=== PATIENT | female | born 1995 | race Two or more races ===

== ENCOUNTER 2019-01-26 22:44 | Inpatient (IN) | payer MEDICAID ==
[~2019-01-26] VITALS: Ht 157.5 cm; Wt 88.8 kg
[2019-01-26 23:47] LABS: Alcohol, Urine < 3.0 mg/dL (0-5); Amphetamine Screen, Urine NEGATIVE (NEGATIVE); Barbiturate Scree,Urine NEGATIVE (NEGATIVE); Benzodiazephine Screen, Urine NEGATIVE (NEGATIVE); Cannabinoid Screen, Urine POSITIVE (NEGATIVE); Cocaine Screen, Urine NEGATIVE (NEGATIVE); Opiate Scree,Urine NEGATIVE (NEGATIVE); Phencyclidine Screen, Urine NEGATIVE (NEGATIVE)
[2019-01-26 23:52] LABS: Urine Bacteria MOD /hpf (None Seen); Urine Blood 1+ /uL (Negative); Urine Hyaline Cast FEW /lpf (0 - 2); Urine Mucus FEW (None Seen); Urine Specific Gravity 1.016 (1.001-1.035); Urine WBC 60 /hpf (0 - 5); Urine WBC Clumps PRESENT /hpf (None Seen)
[2019-01-26 23:59] LABS: Basophils # (auto) 0 uL; Basophils % (auto) 0.4 % (0.0-2.0); Eosinophils # (auto) 0 uL; Eosinophils % (auto) 0.3 % (0.0-7.0); Hematocrit 43.2 % (36.0-46.0); Hemoglobin 14.6 g/dL (12.2-16.2); Lymphocytes # (auto) 0.7 uL; Lymphocytes % (auto) 12.5 % (10.0-50.0); Mean Corpuscular Hemoglobin 32.3 pg (28.0-32.0); Mean Corpuscular Hgb Conc. 33.7 g/dL (32.0-36.0); Mean Corpuscular Volume 95.6 fL (80.0-100.0); Monocytes # (auto) 0.3 uL; Monocytes % (auto) 6.1 % (0.0-12.0); Neutrophils # (auto) 4.5 uL; Neutrophils % (auto) 80.7 % (37.0-80.0); Platelet Count (auto) 243 10^3/uL (140-450); Red Blood Cells 4.52 10^6/uL (4.0-5.20); Red Cell Distribution Width 13.2 % (11.8-14.3); White Blood Cell 5.5 10^3/uL (4.4-10.8)
[2019-01-27 00:20] LABS: BUN/Creatinine Ratio 7.7; Calcium 9.2 mg/dL (8.5-10.1); Potassium 3.5 mmol/L (3.5-5.1)
[2019-01-27 00:28] LABS: Bilirubin, Total 2.7 mg/dL (0.2-1.0); Total Protein 7.6 g/dL (6.4-8.2)
[2019-01-27] MEDS ORDERED: SODIUM CHLORIDE 0.9% 1,000 ML IV ONE (09:00)
[2019-01-27] MEDS ORDERED: HYDROmorphone HCL 2 MG/ML VL IV ONE (09:00)
[2019-01-27] MEDS ORDERED: PROMETHAZINE HCL 25 MG/ML 1ML IV ONE (09:00)
[2019-01-27] MEDS ORDERED: SODIUM CHLORIDE 0.9% 1,000 ML IVB ONE (10:35)
[2019-01-27] MEDS ORDERED: cefTRIAXone 1GM/50ML D5W 50 ML IV ONE (10:45)
[2019-01-27 11:07] LABS: Cholesterol 122 mg/dL (< 200); Triglycerides 93 mg/dL (< 150)
[2019-01-27 11:09] LABS: HDL Cholesterol 56 mg/dL (40-59); LDL Cholesterol 53 mg/dL (< 100)
[2019-01-27] MEDS ORDERED: ONDANSETRON ODT 4 MG TAB PO PRN (11:30)
[2019-01-27] MEDS: D5W/SOD CHL 0.45%/KCL 20MEQ 1,000 ML IV SCH ×3 (11:56→21:24)
[2019-01-27] MEDS ORDERED: LORazepam 2MG/ML-1ML VIAL IV PRN (12:00)
[2019-01-27] MEDS: FOLIC ACID 1 MG, MULTIPLE VITAMIN 10 ML, MAGNESIUM SULF SDV 50% 8 MEQ, THIAMINE INJ 100... INJ SCH ×5 (12:05)
[2019-01-27] MEDS: ONDANSETRON HCL 4 MG/2 ML VIAL IV PRN (12:47)
[2019-01-27] MEDS: HYDROmorphone HCL 2 MG/ML VL IV PRN (12:47)
[2019-01-27 17:00] VITALS: BP 117/65
--- NOTE | 2019-01-27 17:12 | NUR ---
Telemetry admit from ER JOSE RAULREINA admitted to Telemetry unit after SBAR received. Patient oriented to Karen cantor RN, unit, room, bed, and unit policies regarding patient care and visiting hours. Patient now on continuous telemetry monitoring, tele box # [id number] and telemetry reading on arrival to unit is SINUS FABY 48 AND ASYMPTOMATIC. Patient weighed by bedscale and encouraged to call if they need something. All questions and concerns addressed, patient verbalized understanding.
--- NOTE | 2019-01-27 19:00 | NUR ---
OPENING NOTE- NOC SHIFT PATIENT IS ALERT AND ORIENTED X4. PATIENT IS RESTING IN BED IN HER OWN CLOTHES, PATIENT STATES SHE IS MUCH MORE COMFORTABLE IN HER CLOTHES. BED IS LOCKED IN LOWEST POSITION WITH BED RAILS UP X2 FOR SAFETY PRECAUTIONS. BEDSIDE TABLE IS WITHIN REACH, CALL LIGHT IS WITHIN REACH. DISCUSSED POC WITH PATIENT AND INSTRUCTED PATIENT TO CALL PRN; PATIENT VERBALIZED UNDERSTANDING. PATIENT IS AWARE THAT SHE IS NPO. NO DRINKS OR FOOD PRESENT AT BEDSIDE. PATIENT DENIES PAIN AT THIS TIME. WILL CONTINUE TO MONITOR Q1H AND PRN.
[2019-01-27 20:00] VITALS: BP 107/55
[2019-01-27] MEDS: FAMOTIDINE (10MG/ML) 2ML VL IV SCH (21:24)
[2019-01-27 22:00] VITALS: BP 107/55
--- NOTE | 2019-01-28 00:24 | NUR ---
ROUNDS PATIENT IS COMFORTABLE IN BED. NO S/SX OF DISTRESS, SOB OR PAIN.
--- NOTE | 2019-01-28 04:44 | NUR ---
PATIENT UP TO BATHROOM. STEADY GAIT NOTED. STAND BY ASSISTANCE.
[2019-01-28 05:00] VITALS: BP 101/52
[2019-01-28 06:03] LABS: Basophils # (auto) 0 uL; Basophils % (auto) 0.4 % (0.0-2.0); Eosinophils # (auto) 0 uL; Eosinophils % (auto) 0.2 % (0.0-7.0); Hematocrit 39.5 % (36.0-46.0); Hemoglobin 13.5 g/dL (12.2-16.2); Lymphocytes # (auto) 1.2 uL; Lymphocytes % (auto) 18.3 % (10.0-50.0); Mean Corpuscular Hemoglobin 32.6 pg (28.0-32.0); Mean Corpuscular Volume 95.8 fL (80.0-100.0); Monocytes # (auto) 0.5 uL; Monocytes % (auto) 7.4 % (0.0-12.0); Neutrophils # (auto) 4.9 uL; Neutrophils % (auto) 73.7 % (37.0-80.0); Platelet Count (auto) 173 10^3/uL (140-450); Red Blood Cells 4.13 10^6/uL (4.0-5.20); Red Cell Distribution Width 13.1 % (11.8-14.3); White Blood Cell 6.6 10^3/uL (4.4-10.8)
[2019-01-28 06:09] LABS: Potassium 3.8 mmol/L (3.5-5.1)
[2019-01-28 06:21] LABS: Albumin 2.8 g/dL (3.4-5.0); BUN/Creatinine Ratio 9.9; Bilirubin, Total 0.9 mg/dL (0.2-1.0); Calcium 8.2 mg/dL (8.5-10.1); Total Protein 5.9 g/dL (6.4-8.2)
--- NOTE | 2019-01-28 06:48 | NUR ---
CLOSING NOTE- NOC SHIFT PATIENT IS RESTING IN BED, NO S/SX OF DISTRESS, SOB OR PAIN. PATIENT IS AWARE THAT SHE IS NPO. NO DRINKS OR FOOD AT BEDSIDE.
--- NOTE | 2019-01-28 07:43 | NUR ---
Opening Shift Note Assumed care of patient, awake and alert. No S/S of distress/SOB or pain. Instructed on POC and to call for assist PRN, will continue to monitor for changes Q1hr and PRN.
[2019-01-28 09:00] VITALS: BP 118/65
[2019-01-28] MEDS: cefTRIAXone 1GM/50ML D5W 50 ML IV SCH (09:08)
[2019-01-28] MEDS: HYDROmorphone HCL 2 MG/ML VL IV PRN ×2 (09:09→20:19)
[2019-01-28] MEDS: FAMOTIDINE (10MG/ML) 2ML VL IV SCH ×2 (09:09→21:57)
--- NOTE | 2019-01-28 10:25 | NUR ---
MD Chirinos at bedside rounded on patient updated on plan of care possible surgery tomorrow
[2019-01-28] MEDS ORDERED: metroNIDAZOLE 500MG/100ML 100 ML IV ONE (11:00)
--- NOTE | 2019-01-28 12:45 | NUR ---
x2 Peripheral IV inserted 22g RAC and 22g RFA, right hand IV removed and LFA IV removed tolerated well
[2019-01-28 13:00] VITALS: BP 105/61
--- NOTE | 2019-01-28 14:00 | NUR ---
patient boyfreind at bedside visiting patient
[2019-01-28] MEDS: metroNIDAZOLE 500MG/100ML 100 ML IV SCH ×2 (14:24→21:57)
[2019-01-28] MEDS: D5W/SOD CHL 0.45%/KCL 20MEQ 1,000 ML IV SCH ×2 (14:26→20:24)
[2019-01-28] MEDS: FOLIC ACID 1 MG, MULTIPLE VITAMIN 10 ML, MAGNESIUM SULF SDV 50% 8 MEQ, THIAMINE INJ 100... INJ SCH ×5 (14:26)
--- NOTE | 2019-01-28 15:33 | NUR ---
consents signed for laparoscopic possibly open cholecystectomy schedule for tomorrow, estimated surgery schedule at noon
[2019-01-28 17:00] VITALS: BP 119/70
--- NOTE | 2019-01-28 19:00 | NUR ---
OPENING NOTE- NOC SHIFT PATIENT IS ALERT AND ORIENTED X4, ANSWERS IN COMPLETE SENTENCES AND MAKES APPROPRIATE EYE CONTACT. PATIENT IS IN BED RESTING, TALKING ON HER PERSONAL PHONE. BED IS LOCKED IN LOWEST POSITION, BED RAILS UP X2. BEDSIDE TABLE WITHIN REACH, CALL LIGHT WITHIN REACH, PERSONAL BELONGINGS WITHIN REACH. DISCUSSED POC WITH PATIENT AND INSTRUCTED PATIENT TO CALL PRN; PATIENT VERBALIZED UNDERSTANDING. PATIENT IS AWARE THAT SHE IS NPO EXCEPT FOR ICE CHIPS UNTIL MIDNIGHT, AND AFTER MIDNIGHT SHE WILL BE NPO. WILL CONTINUE TO MONITOR Q1H AND PRN.
[2019-01-28] MEDS: ONDANSETRON HCL 4 MG/2 ML VIAL IV PRN (20:18)
[2019-01-28 22:00] VITALS: BP 111/52
[2019-01-29] MEDS: D5W/SOD CHL 0.45%/KCL 20MEQ 1,000 ML IV SCH (04:56)
[2019-01-29 05:10] LABS: Basophils # (auto) 0.1 uL; Basophils % (auto) 1.1 % (0.0-2.0); Eosinophils # (auto) 0 uL; Eosinophils % (auto) 0.9 % (0.0-7.0); Hematocrit 35.9 % (36.0-46.0); Hemoglobin 12.1 g/dL (12.2-16.2); Lymphocytes # (auto) 1.4 uL; Lymphocytes % (auto) 27.9 % (10.0-50.0); Mean Corpuscular Hemoglobin 32.5 pg (28.0-32.0); Mean Corpuscular Hgb Conc. 33.7 g/dL (32.0-36.0); Mean Corpuscular Volume 96.6 fL (80.0-100.0); Monocytes # (auto) 0.5 uL; Monocytes % (auto) 9.2 % (0.0-12.0); Neutrophils % (auto) 60.9 % (37.0-80.0); Platelet Count (auto) 152 10^3/uL (140-450); Red Blood Cells 3.72 10^6/uL (4.0-5.20); Red Cell Distribution Width 13.4 % (11.8-14.3)
[2019-01-29 05:27] LABS: INR 0.95 (0.9-1.15); Partial Thromboplastin Time 31.4 sec (23.64-32.05)
[2019-01-29 05:40] VITALS: BP 123/78
[2019-01-29 05:44] LABS: Albumin 2.7 g/dL (3.4-5.0); BUN/Creatinine Ratio 5.6; Calcium 8.2 mg/dL (8.5-10.1); Potassium 3.7 mmol/L (3.5-5.1)
[2019-01-29 05:47] LABS: Bilirubin, Total 0.7 mg/dL (0.2-1.0); Total Protein 5.8 g/dL (6.4-8.2)
[2019-01-29] MEDS: metroNIDAZOLE 500MG/100ML 100 ML IV SCH ×3 (06:13→21:07)
[2019-01-29] MEDS: HYDROmorphone HCL 2 MG/ML VL IV PRN ×7 (06:56→21:08)
[2019-01-29] MEDS: ONDANSETRON HCL 4 MG/2 ML VIAL IV PRN ×4 (06:56→21:57)
--- NOTE | 2019-01-29 07:25 | NUR ---
Open Shift Note Received report on patient, awake and sitting up in bed. Patient shows no signs of distress at this time but states she still has pain in upper quadrant 4/10. Patient states it is feeling better than before. Discussed POC with patient and plans for surgery today, patient verbalized understanding. Bed in lowest locked position, side rails up x2 and call light within reach. Will continue to monitor.
--- NOTE | 2019-01-29 07:38 | NUR ---
CLOSING NOTE- NOC SHIFT PATIENT CARE ENDORSED TO DAY SHIFT NURSE. PATIENT IS IN BED. NO S/SX OF DISTRESS OR SOB.
[2019-01-29 08:00] VITALS: BP 113/38
[2019-01-29] MEDS: cefTRIAXone 1GM/50ML D5W 50 ML IV SCH (09:56)
[2019-01-29] MEDS: FAMOTIDINE (10MG/ML) 2ML VL IV SCH ×2 (10:20→21:07)
[2019-01-29 12:00] VITALS: BP 128/44
[2019-01-29] MEDS ORDERED: POVIDONE IODINE 10 % TOPICAL OINT 30GM TOP ONE (12:10)
[2019-01-29] MEDS ORDERED: ceFAZolin 1GM/50ML 50 ML IV ONE (12:13)
[2019-01-29] MEDS ORDERED: ROCURONIUM 10MG/ML 10ML VIAL IV ONE (12:35)
[2019-01-29] MEDS ORDERED: KETOROLAC TROMETH 30 MG/ML 1ML VIAL IV ONE (12:35)
[2019-01-29] MEDS ORDERED: NEOSTIGMINE 1 MG/ML INJ (10mg/10ML VIAL) IV ONE (12:35)
[2019-01-29] MEDS ORDERED: GLYCOPYRROLATE 0.2 MG/ML 1ML VIAL IV ONE (12:35)
--- NOTE | 2019-01-29 12:57 | NUR ---
Nutrition Assessment Notes please see attached link for complete assessment Est. Needs ABW (67 kg): 8329-8618 kcal (20-23 kcal/kgBW), 67-73 gms pro (1.0-1.1 gms/kgBW). Will continue to monitor pertinent labs and reassess nutrient need prn Addendum: 01/29/19 at [address] Amended: Links added.
[2019-01-29] MEDS ORDERED: ONDANSETRON HCL 4 MG/2 ML VIAL ONE (14:03)
[2019-01-29] MEDS ORDERED: HYDROmorphone HCL 2 MG/ML VL ONE (14:03)
[2019-01-29 16:00] VITALS: BP 134/59
--- NOTE | 2019-01-29 19:05 | NUR ---
OPENING NOTE- NOC SHIFT PATIENT IS ALERT AND ORIENTED X4, ANSWERS IN COMPLETE SENTENCES AND MAKES APPROPRIATE EYE CONTACT. PATIENT IS IN BED, BED IS LOCKED IN LOWEST POSITION, BED RAILS UP X2, BEDSIDE TABLE WITHIN REACH, CALL LIGHT WITHIN REACH. PATIENT IS POST CHOLECYSTECTOMY. GAUZES WITH TEGADERM COVER HER INCISIONS, TWO TO HER LEFT ABDOMEN AND ONE TO HER LOWER RIGHT ABDOMEN. NO DISCHARGE AT GAUZES NOTED BUT ARE STAINED WITH WHAT APPEARS TO BE IODINE. PATIENT IS WEARING ABDOMINAL BINDER AND TOLERATING WELL. PATIENT REPORTS OVERALL GENERALIZED BODY ACHES. ENCOURAGED PATIENT TO WALK AND TAKE DEEP BREATHES. BOWEL SOUNDS PRESENT X4, PATIENT REPORTS TO HAVE PASSED GAS. WILL CONTINUE TO MONITOR Q1H AND PROVIDE PAIN MANAGEMENT PER MD ORDERS. DISCUSSED POC WITH PATIENT AND INSTRUCTED PATIENT TO CALL PRN; PATIENT VERBALIZED UNDERSTANDING.
--- NOTE | 2019-01-29 19:13 | NUR ---
End of Shift Endorsed care to NOC nurse. No signs of distress at this time.
[2019-01-29 20:05] VITALS: BP 103/70
[2019-01-29] MEDS ORDERED: FOLIC ACID 1 MG, MULTIPLE VITAMIN 10 ML, MAGNESIUM SULF SDV 50% 8 MEQ, THIAMINE INJ 100... INJ ONE ×5 (21:50)
[2019-01-29 22:00] VITALS: BP 103/70
--- NOTE | 2019-01-29 22:24 | NUR ---
ITCHINESS PATIENT COMPLAINED OF ITCHINESS TO HER UPPER EXTREMITIES. PATIENT HAS NOT RECEIVED NEW MEDICATIONS DURING MY SHIFT. VS WITHIN NORMAL LIMITS. RUBBED LOTION ON UPPER ARMS AND FOREARMS; PATIENT REPORTS RELIEF.
--- NOTE | 2019-01-29 22:26 | NUR ---
PROVIDED PATIENT WITH JELLO, APPLE JUICE AND ICE CHIPS; PATIENT TOLERATING WELL. ASSESSING FOR ADVANCEMENT OF DIET IN THE AM.
--- NOTE | 2019-01-30 00:59 | NUR ---
ITCHINESS PATIENT COMPLAINS OF ITCHINESS AGAIN. NO RASHES, NO REDNESS, NO NEW MEDICATIONS HAVE BEEN ADMINISTERED DURING MY SHIFT. PATIENT STATES THAT IT COULD BE THE LINENS THAT NEED TO BE CHANGED; WILL PROVIDE A COMPLETE LINEN CHANGE.
[2019-01-30 05:00] VITALS: BP 114/59
[2019-01-30 06:05] LABS: Basophils # (auto) 0 uL; Basophils % (auto) 0.3 % (0.0-2.0); Eosinophils # (auto) 0 uL; Hematocrit 37.3 % (36.0-46.0); Lymphocytes # (auto) 0.5 uL; Lymphocytes % (auto) 7.3 % (10.0-50.0); Mean Corpuscular Hgb Conc. 34.8 g/dL (32.0-36.0); Mean Corpuscular Volume 94.7 fL (80.0-100.0); Monocytes # (auto) 0.4 uL; Monocytes % (auto) 5.1 % (0.0-12.0); Neutrophils # (auto) 6.5 uL; Neutrophils % (auto) 87.3 % (37.0-80.0); Platelet Count (auto) 172 10^3/uL (140-450); Red Blood Cells 3.93 10^6/uL (4.0-5.20); White Blood Cell 7.4 10^3/uL (4.4-10.8)
[2019-01-30] MEDS: metroNIDAZOLE 500MG/100ML 100 ML IV SCH ×3 (06:06→21:42)
[2019-01-30 06:25] LABS: Albumin 2.8 g/dL (3.4-5.0); Calcium 8.8 mg/dL (8.5-10.1); Potassium 4.1 mmol/L (3.5-5.1)
[2019-01-30 06:28] LABS: BUN/Creatinine Ratio 5.4; Bilirubin, Total 0.5 mg/dL (0.2-1.0); Total Protein 6.5 g/dL (6.4-8.2)
[2019-01-30] MEDS: D5W/SOD CHL 0.45%/KCL 20MEQ 1,000 ML IV SCH ×3 (07:39→14:30)
[2019-01-30] MEDS: HYDROmorphone HCL 2 MG/ML VL IV PRN (07:58)
--- NOTE | 2019-01-30 08:00 | NUR ---
RECEIVED PT RESTING IN BED, CALL LIGHT WITHIN REACH, PT REPORTS PAIN ON ABDOMEN AT 8/10, ABDOMINAL BINDER ON, INCENTIVE SPIROMETER AT BED SIDE, PT EDUCATED ON THE USE AND THE IMPORTANCE OF IT. WILL CONTINUE TO MONITOR PT.
[2019-01-30 09:00] VITALS: BP 131/75
--- NOTE | 2019-01-30 09:00 | NUR ---
DR. AYON AT BED SIDE TO SEE PT, DOCTOR DISCUSSED THE PLAN OF CARE WITH PT.
[2019-01-30] MEDS: cefTRIAXone 1GM/50ML D5W 50 ML IV SCH (09:17)
[2019-01-30] MEDS: FAMOTIDINE (10MG/ML) 2ML VL IV SCH ×2 (09:18→21:41)
[2019-01-30] MEDS: FOLIC ACID 1 MG, MULTIPLE VITAMIN 10 ML, MAGNESIUM SULF SDV 50% 8 MEQ, THIAMINE INJ 100... INJ SCH ×5 (12:26)
[2019-01-30 13:00] VITALS: BP 114/54
[2019-01-30] MEDS: MORPHINE SULF INJ 2 MG/ML SYRINGE 1ML IV PRN ×2 (14:44→20:17)
[2019-01-30 17:00] VITALS: BP 119/66
--- NOTE | 2019-01-30 19:28 | NUR ---
Opening Shift Note Received report from vince Sosa RN. Assumed care of patient, awake and alert. No S/S of distress/SOB or pain. Instructed on POC and to call for assist PRN, will continue to monitor for changes Q1hr and PRN.
[2019-01-30 22:00] VITALS: BP 114/55
[2019-01-31] MEDS: D5W/SOD CHL 0.45%/KCL 20MEQ 1,000 ML IV SCH ×2 (00:58→09:41)
--- NOTE | 2019-01-31 01:00 | NUR ---
IV insertion IV access obtained, via clean sterile technique by inserting 22 gauge catheter at right forearm after first attempt. IV secured properly. No trauma to site. Patient tolerated procedure well.
--- NOTE | 2019-01-31 01:00 | NUR ---
ROUNDS Patient is complaining of pain to left forearm. IV still infusing well. No s/s of infiltration noted. Patient is alert and oriented, no distress noted at this time.
[2019-01-31 04:37] LABS: Basophils # (auto) 0 uL; Basophils % (auto) 0.5 % (0.0-2.0); Eosinophils # (auto) 0.1 uL; Eosinophils % (auto) 1.3 % (0.0-7.0); Hematocrit 39.8 % (36.0-46.0); Lymphocytes # (auto) 2.1 uL; Lymphocytes % (auto) 31.8 % (10.0-50.0); Mean Corpuscular Hemoglobin 33.1 pg (28.0-32.0); Mean Corpuscular Hgb Conc. 32.8 g/dL (32.0-36.0); Monocytes # (auto) 0.5 uL; Monocytes % (auto) 7.6 % (0.0-12.0); Neutrophils # (auto) 3.9 uL; Neutrophils % (auto) 58.8 % (37.0-80.0); Nucleated Red Blood Cells % 0.1 %; Platelet Count (auto) 197 10^3/uL (140-450); Red Blood Cells 3.95 10^6/uL (4.0-5.20); Red Cell Distribution Width 13.6 % (11.8-14.3); White Blood Cell 6.6 10^3/uL (4.4-10.8)
[2019-01-31 05:00] VITALS: BP 118/55
[2019-01-31 05:09] LABS: Calcium 7.2 mg/dL (8.5-10.1)
[2019-01-31 05:13] LABS: BUN/Creatinine Ratio 9.8
[2019-01-31] MEDS: metroNIDAZOLE 500MG/100ML 100 ML IV SCH (05:57)
[2019-01-31 09:00] VITALS: BP 144/74
[2019-01-31] MEDS: cefTRIAXone 1GM/50ML D5W 50 ML IV SCH (09:40)
[2019-01-31] MEDS: FAMOTIDINE (10MG/ML) 2ML VL IV SCH (09:42)
--- NOTE | 2019-01-31 09:45 | NUR ---
Dr. Kirk at bed side to see pt, doctor discussed the plan of care with pt,
--- NOTE | 2019-01-31 09:50 | NUR ---
Called/paged Dr. Pulido / surgeon called regarding Dr. Kirk inquiring on when can pt be d/c, left a message. Waiting for call back. Continue care.
--- NOTE | 2019-01-31 12:20 | NUR ---
Nutrition consult/Follow-up Notes Pt. visited at bedside. Endorses no GI distress with soft diet with good tolerance and improved appetite since admission. PO 75% x 2 days. Diet education on bland, soft, and low fat diet provided during visit. Pt. verbalizes understanding and appreciation. Est. Needs: Based on ABW 67 kg 1541 kcal (20-23/kg), 67 g protein (1.0-1.2 g/kg) Labs: (01/31) Na 147H, K 4, Ca 7.2 Skin: Uriel 22 low risk GI: Last BM x 1 (01/31) PES: Altered nutrition related lab values r/t current chronic medical condition AEB hyperglycemia, mod hypoalb, and hypocalcaemia. (ongoing) Decreased nutrient needs r/t adiposity AEB pt.s high BMI 33.9. (ongoing) Plan of care: Continue current diet and advance as tolerated. Monitor pertinent labs, GI function, PO intake/diet tolerance. F/u in 3-5 days. Recommendations: 1) Advance diet to regular diet as tolerated
[2019-01-31 12:49] VITALS: BP 128/89
[2019-01-31 13:00] VITALS: BP 128/89
--- NOTE | 2019-01-31 14:20 | NUR ---
Discharge instructions given as ordered. Encourage to follow up with PMD as instructed. All questions and concerns addressed. Patient verbalized understanding. Medication reconciliation form completed and copy given to patient. No home medications held in Pharmacy returned to patient, and no needed vaccines given. IV removed with catheter intact, incision dressing change and applied. Telemetry unit returned to [facility].
--- NOTE | 2019-01-31 14:30 | NUR ---
Patient taken to vehicle via wheelchair with all personal belongings, accompanied by staff and family member. No distress noted at time of departure.
== END 2019-01-31 14:30 | disposition home or self-care (01) | DRG 263 ==
LOC: ER 22:44 → TELE 22:45 → CENTRAL 01-27 17:00 → TELE-CENTR 01-28 08:29
PROVIDERS: ADMIT Nurse Practitioner Acute Care; ATTEND Internal Medicine Pulmonary Disease
PROC: 0FT44ZZ Resection of Gallbladder, Percutaneous Endoscopic Approach (ICD-10-PCS; principal; 2019-01-29 12:45)
DX: K85.10 Biliary acute pancreatitis without necrosis or infection (principal); N17.0 Acute kidney failure with tubular necrosis; E44.0 Moderate protein-calorie malnutrition; K80.00 Calculus of gallbladder with acute cholecystitis without obstruction; N39.0 Urinary tract infection, site not specified; R00.1 Bradycardia, unspecified; N18.9 Chronic kidney disease, unspecified; F17.210 Nicotine dependence, cigarettes, uncomplicated; F12.10 Cannabis abuse, uncomplicated; R73.9 Hyperglycemia, unspecified; E87.0 Hyperosmolality and hypernatremia; E66.01 Morbid (severe) obesity due to excess calories; Z68.35 Body mass index [BMI] 35.0-35.9, adult
CPT/HCPCS: 36415; 71045; 74176; 74181; 76705; 80048; 80053; 80061; 80307; 81001; 81025; 82150; 83690; 84443; 84702; 85025; 85610; 85730; 86850; 86900; 86901; 87086; 96361; 96365; 96367; 96375; G0378; J0690; J0696; J1885; J2405; J3490

== ENCOUNTER 2023-02-16 12:16 | Emergency (ER) | payer MEDICAID ==
[~2023-02-16] VITALS: Ht 160 cm; Wt 100.6 kg
[2023-02-16] MEDS ORDERED: PANTOPRAZOLE 40 MG/10 ML VIAL INJ IV ONE (12:45)
[2023-02-16] MEDS ORDERED: SODIUM CHLORIDE 0.9% 1,000 ML IVB ONE (12:45)
[2023-02-16] MEDS ORDERED: PROCHLORPERAZINE EDISYLATE 5 MG/ML 2ML VIAL IV ONE (12:45)
[2023-02-16 13:01] LABS: Basophils # (auto) 0 10 ^3/uL (0-0.2); Basophils % (auto) 0.6 % (0.0-2.0); Eosinophils # (auto) 0 10 ^3/uL (0-0.8); Eosinophils % (auto) 0.5 % (0.0-7.0); Hematocrit 48.9 % (36.0-46.0); Hemoglobin 16.7 g/dL (12.2-16.2); Lymphocytes # (auto) 1.5 10 ^3/uL (0.4-5.4); Mean Corpuscular Hemoglobin 31.7 pg (28.0-32.0); Mean Corpuscular Hgb Conc. 34.1 g/dL (32.0-36.0); Mean Corpuscular Volume 93.1 fL (80.0-100.0); Monocytes # (auto) 0.4 10 ^3/uL (0-1.3); Monocytes % (auto) 6.8 % (0.0-12.0); Neutrophils % (auto) 67.1 % (37.0-80.0); Nucleated Red Blood Cells % 0.1 %; Red Blood Cells 5.25 10^6/uL (4.0-5.20); Red Cell Distribution Width 13.2 % (11.8-14.3); White Blood Cell 5.9 10^3/uL (4.4-10.8)
[2023-02-16 13:25] VITALS: BP 131/51; PULSE 78; RESP 20; TEMP 97.7; O2SAT 95
[2023-02-16 13:25] LABS: Alanine Aminotransferase 38 U/L (7-40); Albumin 4.9 g/dL (3.2-4.8); Alkaline Phosphatase 78 U/L (46-116); Anion Gap 10.8 (5-15); Aspartate Aminotransferase 28 U/L (13-40); BUN/Creatinine Ratio 6.7 (10.0-20.0); Bilirubin, Total 1.6 mg/dL (0.2-1.0); Blood Urea Nitrogen 7 mg/dL (9-23); Calcium 9.9 mg/dL (8.5-10.1); Carbon Dioxide 20.2 mmol/L (20-30); Chloride 107 mmol/L (98-107); Glucose 133 mg/dL (74-106); Lipase 48 U/L (12-53); Potassium 3.5 mmol/L (3.5-5.1); Sodium 138 mmol/L (136-145); Total Protein 8.2 g/dL (5.7-8.2)
[2023-02-16] MEDS ORDERED: PANT40TA2 PO (13:53)
[2023-02-16] MEDS ORDERED: ZOFR4T PO (13:53)
== END 2023-02-16 14:36 | disposition home or self-care (01) ==
LOC: ER 12:16
DX: F12.188 Cannabis abuse with other cannabis-induced disorder (principal); R51.9 Headache, unspecified; Z90.49 Acquired absence of other specified parts of digestive tract
CPT/HCPCS: 36415; 74176; 80053; 83690; 85025; 96361; 96374; 96375; 99285; C9113; J0780; J7030

== ENCOUNTER 2023-03-31 15:55 | Emergency (ER) | payer MEDICAID ==
[~2023-03-31] VITALS: Ht 162.6 cm; Wt 103.4 kg
[~2023-03-31 15:55] MED LIST: PANT40TA2 PO; ZOFR4T PO
[2023-03-31] MEDS ORDERED: ONDANSETRON ODT 4 MG TAB PO ONE (17:30)
[2023-03-31] MEDS ORDERED: LORazepam 0.5 MG TAB PO ONE (17:30)
[2023-03-31 17:36] LABS: Urine Bacteria NONE SEEN /hpf (None Seen); Urine Blood Negative /uL (Negative); Urine Clarity HAZY (Clear); Urine Color Yellow (Yellow); Urine Mucus FEW (None Seen); Urine Protein, UAD 1+ (Negative); Urine Specific Gravity 1.027 (1.001-1.035); Urine WBC 5 /hpf (0 - 5)
[2023-03-31 18:11] LABS: Basophils # (auto) 0.1 10 ^3/uL (0-0.2); Basophils % (auto) 0.9 % (0.0-2.0); Eosinophils # (auto) 0 10 ^3/uL (0-0.8); Eosinophils % (auto) 0.2 % (0.0-7.0); Hematocrit 45.4 % (36.0-46.0); Hemoglobin 15.6 g/dL (12.2-16.2); Lymphocytes # (auto) 2.2 10 ^3/uL (0.4-5.4); Mean Corpuscular Hemoglobin 32.1 pg (28.0-32.0); Mean Corpuscular Hgb Conc. 34.3 g/dL (32.0-36.0); Mean Corpuscular Volume 93.5 fL (80.0-100.0); Monocytes # (auto) 0.5 10 ^3/uL (0-1.3); Monocytes % (auto) 6.5 % (0.0-12.0); Neutrophils # (auto) 4.4 10 ^3/uL (1.6-8.6); Neutrophils % (auto) 61.4 % (37.0-80.0); Nucleated Red Blood Cells % 0.1 %; Red Blood Cells 4.86 10^6/uL (4.0-5.20); Red Cell Distribution Width 13.1 % (11.8-14.3); White Blood Cell 7.2 10^3/uL (4.4-10.8)
[2023-03-31 18:30] LABS: Alanine Aminotransferase 22 U/L (7-40); Albumin 4.8 g/dL (3.2-4.8); Alkaline Phosphatase 88 U/L (46-116); Anion Gap 11 (5-15); Aspartate Aminotransferase 22 U/L (13-40); BUN/Creatinine Ratio 10.2 (10.0-20.0); Blood Urea Nitrogen 10 mg/dL (9-23); Calcium 9.6 mg/dL (8.7-10.4); Carbon Dioxide 21 mmol/L (20-30); Chloride 108 mmol/L (98-107); Glucose 135 mg/dL (74-106); Lipase 40 U/L (12-53); Potassium 3.6 mmol/L (3.5-5.1); Sodium 140 mmol/L (136-145)
[2023-03-31 18:31] LABS: Bilirubin, Total 1.7 mg/dL (0.2-1.0); Total Protein 7.4 g/dL (5.7-8.2)
[2023-03-31 21:57] VITALS: BP 144/92; TEMP 97.7
[2023-03-31 21:58] VITALS: PULSE 60; RESP 20; O2SAT 99
== END 2023-03-31 22:00 | disposition home or self-care (01) ==
LOC: ER 15:55
DX: F41.9 Anxiety disorder, unspecified (principal); R10.2 Pelvic and perineal pain; F15.90 Other stimulant use, unspecified, uncomplicated; F12.90 Cannabis use, unspecified, uncomplicated; Z90.49 Acquired absence of other specified parts of digestive tract; Z98.890 Other specified postprocedural states
CPT/HCPCS: 36415; 80053; 81001; 83690; 84702; 85025; 99283; Q0162

== ENCOUNTER 2023-06-30 11:19 | Emergency (ER) | payer MEDICAID ==
[~2023-06-30] VITALS: Ht 162.6 cm; Wt 107.7 kg
[2023-06-30] MEDS ORDERED: diphenhdrAMINE HCL 25 MG CAP PO ONE (13:45)
[2023-06-30] MEDS ORDERED: ACETAMINOPHEN 500 MG TAB PO ONE (13:45)
[2023-06-30 13:50] VITALS: BP 132/80; PULSE 99; RESP 18; O2SAT 99
[2023-06-30 14:19] VITALS: TEMP 99
[2023-06-30] MEDS ORDERED: AZIT500T66 PO (14:38)
[2023-06-30] MEDS ORDERED: PROM1SOL4 PO (14:38)
== END 2023-06-30 14:48 | disposition home or self-care (01) ==
LOC: ER 11:19
DX: J03.90 Acute tonsillitis, unspecified (principal); F41.8 Other specified anxiety disorders; R07.89 Other chest pain; Z90.49 Acquired absence of other specified parts of digestive tract; Z79.2 Long term (current) use of antibiotics; Z79.899 Other long term (current) drug therapy
CPT/HCPCS: 71045

== ENCOUNTER 2023-08-02 12:35 | Emergency (ER) | payer MEDICAID ==
[~2023-08-02] VITALS: Ht 160 cm; Wt 110.4 kg
[~2023-08-02 12:35] MED LIST changes: +AZIT500T66 PO; +PROM1SOL4 PO
[2023-08-02 13:24] VITALS: BP 116/66; PULSE 76; RESP 17; TEMP 98.2; O2SAT 99
[2023-08-02] MEDS: KETOROLAC TROMETH 60MG/2ML VIAL IM ONE (13:49)
[2023-08-02] MEDS ORDERED: IBUP1TAB5 PO (14:40)
[2023-08-02] MEDS ORDERED: CYCL-839 PO (14:40)
== END 2023-08-02 14:45 | disposition home or self-care (01) ==
LOC: ER 12:35
DX: M54.6 Pain in thoracic spine (principal); F41.9 Anxiety disorder, unspecified; F32.9 Major depressive disorder, single episode, unspecified; F15.90 Other stimulant use, unspecified, uncomplicated; Z98.890 Other specified postprocedural states; Z79.899 Other long term (current) drug therapy
CPT/HCPCS: 71250; 74176; 96372; 99285; J1885

== ENCOUNTER 2023-08-26 17:51 | Emergency (ER) | payer MEDICAID ==
[~2023-08-26] VITALS: Ht 172.7 cm; Wt 91.0 kg
[~2023-08-26 17:51] MED LIST changes: +CYCL-839 PO; +IBUP1TAB5 PO
[2023-08-26 18:30] VITALS: PULSE 60; RESP 16; O2SAT 98
[2023-08-26] MEDS: SODIUM CHLORIDE 0.9% 1,000 ML IVB ONE (18:33)
[2023-08-26 18:47] LABS: Basophils # (auto) 0 10 ^3/uL (0-0.2); Basophils % (auto) 0.9 % (0.0-2.0); Eosinophils # (auto) 0.1 10 ^3/uL (0-0.8); Eosinophils % (auto) 2.6 % (0.0-7.0); Hemoglobin 14.7 g/dL (12.2-16.2); Lymphocytes # (auto) 2.1 10 ^3/uL (0.4-5.4); Lymphocytes % (auto) 40.6 % (10.0-50.0); Mean Corpuscular Hemoglobin 31.4 pg (28.0-32.0); Mean Corpuscular Hgb Conc. 33.4 g/dL (32.0-36.0); Mean Corpuscular Volume 93.8 fL (80.0-100.0); Monocytes # (auto) 0.5 10 ^3/uL (0-1.3); Monocytes % (auto) 8.6 % (0.0-12.0); Neutrophils # (auto) 2.5 10 ^3/uL (1.6-8.6); Neutrophils % (auto) 47.3 % (37.0-80.0); Red Blood Cells 4.69 10^6/uL (4.0-5.20); Red Cell Distribution Width 13.2 % (11.8-14.3); White Blood Cell 5.3 10^3/uL (4.4-10.8)
[2023-08-26 19:00] LABS: INR 0.96 (0.9-1.15); Partial Thromboplastin Time 29.3 SEC (24.5-34.5); Prothrombin Time 10.1 sec (9.3-11.8)
[2023-08-26 19:01] LABS: Alanine Aminotransferase 27 U/L (7-40); Albumin 4.2 g/dL (3.2-4.8); Alkaline Phosphatase 73 U/L (46-116); Anion Gap 7 (5-15); Aspartate Aminotransferase 19 U/L (13-40); BUN/Creatinine Ratio 12.4 (10.0-20.0); Bilirubin, Total 0.7 mg/dL (0.2-1.0); Blood Urea Nitrogen 12 mg/dL (9-23); Calcium 9.4 mg/dL (8.7-10.4); Carbon Dioxide 24 mmol/L (20-30); Chloride 110 mmol/L (98-107); Glucose 110 mg/dL (74-106); Lipase 35 U/L (12-53); Potassium 3.8 mmol/L (3.5-5.1); Sodium 141 mmol/L (136-145); Total Protein 5.6 g/dL (5.7-8.2)
[2023-08-26 19:30] VITALS: PULSE 67; RESP 16; TEMP 98; O2SAT 99
[2023-08-26] MEDS: KETOROLAC TROMETH 30 MG/ML 1ML VIAL IV ONE (20:03)
[2023-08-26 22:00] VITALS: BP 126/69; PULSE 61; RESP 12; O2SAT 96
[2023-08-26] MEDS ORDERED: CYCL-839 PO (22:04)
[2023-08-26] MEDS ORDERED: ACET500T58 PO (22:04)
== END 2023-08-26 22:40 | disposition home or self-care (01) ==
LOC: ER 17:51 → EDBD 17:51 → ER 22:33
DX: R07.89 Other chest pain (principal); R10.2 Pelvic and perineal pain; R51.9 Headache, unspecified; R10.12 Left upper quadrant pain; Z90.49 Acquired absence of other specified parts of digestive tract; Z79.899 Other long term (current) drug therapy; Z79.1 Long term (current) use of non-steroidal anti-inflammatories (NSAID)
CPT/HCPCS: 36415; 71045; 76700; 80053; 83690; 84702; 85025; 85610; 85730; 96361; 96374; 99285; J1885; J7030

== ENCOUNTER 2023-12-14 20:07 | Emergency (ER) | payer MEDICAID ==
[~2023-12-14] VITALS: Ht 160 cm; Wt 112.4 kg
[~2023-12-14 20:07] MED LIST changes: +ACET500T58 PO; +IBUP-1456 PO
[2023-12-14 20:58] LABS: Urine Bacteria None Seen /hpf (None Seen)
[2023-12-14 21:03] LABS: Basophils # (auto) 0.1 10 ^3/uL (0-0.2); Basophils % (auto) 0.9 % (0.0-2.0); Eosinophils # (auto) 0.2 10 ^3/uL (0-0.8); Hematocrit 44.6 % (36.0-46.0); Hemoglobin 15.4 g/dL (12.2-16.2); Lymphocytes % (auto) 29.6 % (10.0-50.0); Mean Corpuscular Hemoglobin 31.5 pg (28.0-32.0); Mean Corpuscular Hgb Conc. 34.5 g/dL (32.0-36.0); Mean Corpuscular Volume 91.4 fL (80.0-100.0); Monocytes # (auto) 0.6 10 ^3/uL (0-1.3); Monocytes % (auto) 8.9 % (0.0-12.0); Neutrophils # (auto) 3.9 10 ^3/uL (1.6-8.6); Neutrophils % (auto) 57.6 % (37.0-80.0); Nucleated Red Blood Cells % 0.1 %; Red Blood Cells 4.88 10^6/uL (4.0-5.20); Red Cell Distribution Width 12.6 % (11.8-14.3); White Blood Cell 6.7 10^3/uL (4.4-10.8)
[2023-12-14 21:07] LABS: Urine Blood Negative /uL (Negative); Urine Clarity Clear (Clear); Urine Color Yellow (Yellow); Urine Mucus FEW (None Seen); Urine Protein, UAD TRACE (Negative); Urine Specific Gravity 1.021 (1.001-1.035); Urine Urobilinogen Normal (Negative); Urine WBC <1 /hpf (0 - 5); Urine pH 6.5 (5.0-9.0)
[2023-12-14 21:23] LABS: Alanine Aminotransferase 34 U/L (7-40); Albumin 4.5 g/dL (3.2-4.8); Alkaline Phosphatase 70 U/L (46-116); Anion Gap 8 (5-15); Aspartate Aminotransferase 21 U/L (13-40); BUN/Creatinine Ratio 6.6 (10.0-20.0); Blood Urea Nitrogen 8 mg/dL (9-23); Calcium 10.1 mg/dL (8.7-10.4); Carbon Dioxide 28 mmol/L (20-30); Chloride 102 mmol/L (98-107); Glucose 156 mg/dL (74-106); Sodium 138 mmol/L (136-145); Total Protein 7.4 g/dL (5.7-8.2)
[2023-12-14] MEDS ORDERED: HYDR25CA PO (23:44)
[2023-12-14] MEDS ORDERED: IBUP1TAB5 PO (23:44)
[2023-12-14] MEDS ORDERED: ZOFR4T PO (23:44)
[2023-12-14] MEDS: LORazepam 0.5 MG TAB PO ONE (23:46)
[2023-12-14] MEDS: KETOROLAC TROMETH 60MG/2ML VIAL IM ONE (23:48)
[2023-12-14 23:56] VITALS: BP 120/83; PULSE 70; RESP 15; TEMP 97.9; O2SAT 97
[2023-12-15] MEDS: POTASSIUM CHL 20 Meq TABLET PO ONE (00:14)
== END 2023-12-15 01:11 | disposition home or self-care (01) ==
LOC: ER 20:07
DX: F41.9 Anxiety disorder, unspecified (principal); E87.6 Hypokalemia; R51.9 Headache, unspecified; F32.9 Major depressive disorder, single episode, unspecified; F15.90 Other stimulant use, unspecified, uncomplicated; Z98.890 Other specified postprocedural states
CPT/HCPCS: 36415; 70450; 80053; 81001; 81025; 84484; 85025; 96372; 99285; J1885

== ENCOUNTER 2024-07-04 18:44 | Emergency (ER) | payer MEDICAID ==
[~2024-07-04] VITALS: Ht 162.6 cm; Wt 118.0 kg
[~2024-07-04 18:44] MED LIST changes: +HYDR25CA PO
[2024-07-04] MEDS: ALBUTEROL SULF 2.5 MG/0.5ML(0.5%) NEB SOLN NEB ONE (19:10)
[2024-07-04] MEDS: IPRATROPIUM BROM 0.5 MG/2.5ML INH SOL NEB ONE (19:10)
--- NOTE | 2024-07-04 19:12 | ED.PDOC ---
SOB-HPI HPI Comments 28-year-old female came to ER with a shortness of breath. Patient was just discharge at [facility] a few hours ago, diagnosed with acute bronchitis. Patient states she has been having flu-like symptoms for the past 2 days, with shortness a breath, dry cough, chest pains, body pains, weakness, nausea and vomiting. Patient is saturating 98% on room air. Patient denies any fever Chief Complaint: Shortness of breath Time Seen by MD: 19:11 Primary Care Provider: KATLIN Reviewed notes: Nurses Notes Information Source: Patient Mode of Arrival: EMS Severity: Moderate Timing: Hours Duration: Since onset Context: At Rest, With Light Exertion PE Risk Factors: None History of: None Prehospital treatment: None Modifying Factors: Nothing Associated Signs and Symptoms: Cough, Chest Pain If cough with SOB: Non-Productive Past Medical History PAST MEDICAL HISTORY: Anxiety, Depression Surgical History: Cholecystectomy, SH[facility]POINT ADMIN History: No Pertinent SH[facility]POINT ADMIN History Family History Family History: Reviewed,noncontributory to illness, Family hx of HTN Social History Smoker: Non-Smoker Alcohol: Denies ETOH Use Drugs: Marijuana Lives In: Home Constitutional: reports: fatigue, malaise, weakness; denies: chills, diaphoresis, fever, sweats, others EENTM: denies: blurred vision, double vision, ear bleeding, ear discharge, ear drainage, ear pain, ear ringing, eye pain, eye redness, hearing loss, mouth pain, mouth swelling, nasal discharge, nose bleeding, nose congestion, nose tino n, photophobia, tearing, throat pain, throat swelling, voice changes, others Respiratory: reports: cough, SOB at rest, shortness of breath; denies: hemoptysis, orthopnea, SOB with excertion, stridor, wheezing, others Cardiovascular: reports: chest pain; denies: dizzy spells, diaphoresis, Dyspnea on exertion, edema, irregular heart beat, left arm pain, lightheadedness, palpitations, PND, syncope, others Gastrointestinal: reports: nausea, vomiting; denies: abdomen distended, abdominal pain, blood streaked bowels, constipated, diarrhea, dysphagia, difficulty swallowing, hematemesis, melena, poor appetite, poor fluid intake, rectal bleeding, rectal pain, others Genitourinary: denies: abnormal vagina bleeding, burning, dyspareunia, dysuria, flank pain, frequency, hematuria, incontinence, pain, , vagina discharge, urgency, others Neurological: denies: dizziness, fainting, headache, left sided numbness, left sided weakness, numbness, paresthesia, pre-existing deficit, right sided numbness, right sided weakness, seizure, speech problems, tingling, tremors, weakness, others Musculoskeletal: denies: back pain, gout, joint pain, joint swelling, muscle pain, muscle stiffness, neck pain, others Integumetry: denies: bruises, change in color, change in hair/nails, dryness, laceration, lesions, lumps, rash, wounds, others Allergic/Immunocompromised: denies: Difficulty Healing, Frequent Infections, Hives, Itching, others Hematologic/Lymphatic: denies: anemia, blood clots, easy bleeding, easy bruising, swollen glands, others Endocrine: denies: excessive hunger, excessive sweating, excessive thirst, excessive urination, flushing, intolerance to cold, intolerance to heat, unexplained weight gain, unexplained weight loss, others Psychiatric: denies: anxiety, bipolar disorder, depression, hopeless, panic disorder, schizophrenia, sleepless, suicidal, others Physical Exam General Appearance: No Apparent Distress, Normal HEENT: Normal ENT Inspection, Pharynx Normal, TMs Normal Neck: Full Range of Motion, Non-Tender, Normal, Normal Inspection Respiratory: Chest Non-Tender, Lungs Clear, No Accessory Muscle Use, No Respiratory Distress, Normal Breath Sounds Cardiovascular: No Edema, No JVD, No Murmur, No Gallop, Normal Peripheral Pulses, Regular Rate/Rhythm Breast Exam: Deferred Gastrointestinal: No Organomegaly, Non Tender, No Pulsatile Mass, Normal Bowel Sounds, Soft Genitalia: Deferred Pelvic: Deferred Rectal: Deferred Extremities: No calf tenderness, Normal capillary refill, Normal inspection, Normal range of motion, Non-tender, No pedal edema Musculoskeletal : Apperance: Normal Neurologic: Alert, stonemason II-XII nml as Tested, No Motor Deficits, Normal Affect, Normal Mood, No Sensory Deficits Cerebellar Function: Normal Reflexes: Normal Skin: Dry, Normal Color, Warm Lymphatic: No Adenopathy Was a procedure done? Was a procedure done?: No Differential Dx Differential Diagnosis: Asthma, Bronchitis, COPD, Pneumonia, Respiratory Distress, URI X-Ray, Labs, Meds, VS Vital Signs Date Time Temp Pulse Resp B/P (MAP) Pulse Ox O2 Delivery O2 Flow Rate FiO2 07/04/24 19:11 18 98 Room Air* 0 21 07/04/24 19:07 98.0 84 20 156/99 (118) 98 Lab Test 07/04/24 21:00 Range/Units Influenza Type A Antigen Negative Negative Influenza Type B Antigen Negative Negative SARS-CoV-2 Antigen (Rapid) Negative NEGATIVE Current Medications Medications (Trade) Dose Ordered Sig/Meagan Route Start Time Stop Time Status Last Admin Acetaminophen (Tylenol Tablet) 650 mg ONCE ONCE PO 07/04/24 19:00 07/04/24 19:01 DC 07/04/24 19:24 Albuterol (Ventolin Medneb) 5 mg ONCE ONCE NEB 07/04/24 19:00 07/04/24 19:01 DC 07/04/24 19:10 Ipratropium [place] (Atrovent Medneb) 0.5 mg ONCE ONCE NEB 07/04/24 19:00 07/04/24 19:01 DC 07/04/24 19:10 Dexamethasone Sodium Phosphate (Decadron Injection) 10 mg ONCE ONCE PO 07/04/24 19:00 07/04/24 19:01 DC 07/04/24 19:24 EXAM: XY CHEST TWO VIEWS ROUTINE CLINICAL HISTORY: cough TECHNIQUE: Frontal and lateral views of the chest WID: COMPARISON: None FINDINGS: Lines and tubes: None Chest: The heart size and pulmonary vasculature is within normal limits. No pleural effusion, pneumothorax, or consolidation. The osseous structures are grossly intact. IMPRESSION: No acute cardiopulmonary abnormality. Time of 1ST Reevaluation: 19:06 Reevaluation 1ST: Unchanged Patient Education/Counseling: Diagnosis, Treatment Family Education/Counseling: No Family Present Departure 1 Departure Time of Disposition: 21:56 (Patient likely has a viral syndrome. Patient home with outpatient) Impression: Primary Impression: Acute viral syndrome Disposition: 01 HOME / SELF CARE / HOMELESS Condition: Stable Additional Instructions: You likely have a viral illness. It is important to stay well rested and well hydrated. You can take Tylenol and Motrin as needed for pain and fever. For a sore throat you can drink warm tea with honey. You can take [id number] pseudoephedrine for nasal congestion. He should follow up with your regular doctor within 1 week to ensure you are doing better. If your symptoms worsen or you have any other concerns please return to the emergency room. Discharged With: Self Critical Care Note Critical Care Time?: No Stability Stability form required: No Heart Score Heart Score: Heart Score Response (Comments) Value History N/A 0 EKG N/A 0 Age N/A 0 Risk Factors N/A 0 Troponin N/A 0 Total 0 I personally scribed for AURELIA DRUMMOND MD ([email or web address]) on 07/04/24 at 19:12. Electronically submitted by Tyler Gee ([facility] I personally scribed for AURELIA DRUMMOND MD ([email or web address]) on 07/04/24 at 19:50. Electronically submitted by Tyler Gee ([facility] AURELIA DRUMMOND MD Jul 04, 2024 19:12
[2024-07-04] MEDS: DexAMETHasone SOD PHOS 10MG/1ML VIAL INJ PO ONE (19:24)
[2024-07-04] MEDS: ACETAMINOPHEN 325 MG TAB PO ONE (19:24)
--- NOTE | 2024-07-04 19:39 | DVH ---
EXAM: XY CHEST TWO VIEWS ROUTINE CLINICAL HISTORY: cough TECHNIQUE: Frontal and lateral views of the chest WID: COMPARISON: None FINDINGS: Lines and tubes: None Chest: The heart size and pulmonary vasculature is within normal limits. No pleural effusion, pneumothorax, or consolidation. The osseous structures are grossly intact. IMPRESSION: No acute cardiopulmonary abnormality.
[2024-07-04 21:47] LABS: COVID19 ANTIGEN SOFIA FIA NEGATIVE (NEGATIVE); Rapid Influenza A Negative (Negative); Rapid Influenza B Negative (Negative)
[2024-07-04 23:18] VITALS: BP 148/86; PULSE 86; RESP 18; O2SAT 94
== END 2024-07-04 23:34 | disposition home or self-care (01) ==
LOC: EDBD 18:44 → ER 18:44 → EDUNIT# 18:44 → ER 23:22
DX: B34.9 Viral infection, unspecified (principal); F41.9 Anxiety disorder, unspecified; F32.9 Major depressive disorder, single episode, unspecified; F15.90 Other stimulant use, unspecified, uncomplicated; Z90.49 Acquired absence of other specified parts of digestive tract; Z98.890 Other specified postprocedural states; Z20.822 Contact with and (suspected) exposure to COVID-19
CPT/HCPCS: 36415; 71046; 87426; 87804; 94640; 99284; J1100

== ENCOUNTER 2024-07-08 06:53 | Inpatient (IN) | payer MEDICAID ==
[~2024-07-08] VITALS: Ht 162.6 cm; Wt 100.0 kg
--- NOTE | 2024-07-08 09:34 | ED.PDOC ---
SOB-HPI HPI Comments 28 year old female brought in by EMS presents to the ED with a chief complaint of shortness of breath onset 1 week. Patient has been experiencing shortness of breath, nausea, vomiting, productive cough with yellow phlegm. Patient states she was seen at [facility] about 1 week ago, diagnosed with Bronchitis and prescribed medication. About 4 days ago came to this ED was given breathing treatment and noticed improvement of symptoms. Patient woke up today and noticed shortness of breath worsened. PMHx anxiety, depression. Denies chest pain, headache, dizziness, diarrhea, abdominal pain,dysuria. No other symptoms or modifying factors present at this time. Chief Complaint: Shortness of Breath Time Seen by MD: 08:53 Primary Care Provider: UNKNOWN Reviewed notes: Medications, Allergies Information Source: Patient Mode of Arrival: EMS Severity: Moderate Timing: Weeks Duration: Since onset PE Risk Factors: None History of: Anxiety Prehospital treatment: Other (albuterol ) Associated Signs and Symptoms: Cough Radiation: No Radiation If cough with SOB: Productive, Yellow Past Medical History PAST MEDICAL HISTORY: Anxiety, Depression Surgical History: Cholecystectomy, [employer] History: No Pertinent [employer] TE[employer]ER History Family History Family History: Reviewed,noncontributory to illness, Family hx of HTN Social History Smoker: Non-Smoker Alcohol: Denies ETOH Use Drugs: Marijuana Lives In: Home Constitutional: denies: chills, diaphoresis, fatigue, fever, malaise, sweats, weakness, others EENTM: denies: blurred vision, double vision, ear bleeding, ear discharge, ear drainage, ear pain, ear ringing, eye pain, eye redness, hearing loss, mouth pain, mouth swelling, nasal discharge, nose bleeding, nose congestion, nose pain, photophobia, tearing, throat pain, throat swelling, voice changes, others Respiratory: reports: cough, shortness of breath; denies: hemoptysis, orthopnea, SOB at rest, SOB with excertion, stridor, wheezing, others Cardiovascular: denies: chest pain, dizzy spells, diaphoresis, Dyspnea on exertion, edema, irregular heart beat, left arm pain, lightheadedness, pa lpitations, PND, syncope, others Gastrointestinal: reports: nausea, vomiting; denies: abdomen distended, abdominal pain, blood streaked bowels, constipated, diarrhea, dysphagia, difficulty swallowing, hematemesis, melena, poor appetite, poor fluid intake, rectal bleeding, rectal pain, others Genitourinary: denies: abnormal vagina bleeding, burning, dyspareunia, dysuria, flank pain, frequency, hematuria, incontinence, pain, , vagina discharge, urgency, others Neurological: denies: dizziness, fainting, headache, left sided numbness, left sided weakness, numbness, paresthesia, pre-existing deficit, right sided numbness, right sided weakness, seizure, speech problems, tingling, tremors, weakness, others Musculoskeletal: denies: back pain, gout, joint pain, joint swelling, muscle pain, muscle stiffness, neck pain, others Integumetry: denies: bruises, change in color, change in hair/nails, dryness, laceration, lesions, lumps, rash, wounds, others Allergic/Immunocompromised: denies: Difficulty Healing, Frequent Infections, Hives, Itching, others Hematologic/Lymphatic: denies: anemia, blood clots, easy bleeding, easy bruising, swollen glands, others Endocrine: denies: excessive hunger, excessive sweating, excessive thirst, excessive urination, flushing, intolerance to cold, intolerance to heat, un explained weight gain, unexplained weight loss, others Psychiatric: denies: anxiety, bipolar disorder, depression, hopeless, panic disorder, schizophrenia, sleepless, suicidal, others All Other Systems: Reviewed and Negative Physical Exam General Appearance: Mild Distress, Moderate Distress, Obese HEENT: Normal ENT Inspection, PERRL/EOMI, Other (SEVERE CONGESTION MILDLY HIGH DEHYDRATED) Neck: Full Range of Motion, Non-Tender, Normal, Normal Inspection Respiratory: Crackles, Decreased Breath Sounds, Expiration, Inspiration, No Respiratory Distress, Rhonchi Cardiovascular: No Edema, No JVD, No Murmur, No Gallop, Normal Peripheral Pulses, Regular Rate/Rhythm Breast Exam: Deferred Gastrointestinal: No Organomegaly, Non Tender, No Pulsatile Mass, Normal Bowel Sounds, Soft Genitalia: Deferred Pelvic: Deferred Rectal: Deferred Extremities: No calf tenderness, Normal capillary refill, Normal inspection, Normal range of motion, Non-tender, No pedal edema Neurologic: Alert, assistant II-XII nml as Tested, No Motor Deficits, Normal Affect, Normal Mood, No Sensory Deficits Cerebellar Function: Normal Reflexes: Normal Skin: Dry, Normal Color, Warm Peripheral Pulses: 1+ carotid (R), 1+ carotid (L) Lymphatic: No Adenopathy EKG EKG : Pulse Rate (adult): 109 [place]: Normal Cardiac Rhythm: ST Hypertrophy: LAE Was a procedure done? Was a procedure done?: No Differential Dx Differential Diagnosis: Asthma, Bronchitis, CHF, COPD, Hypertension, Hyponatremia, Pneumonia, Respiratory Distress, URI X-Ray, Labs, Meds, VS Vital Signs Date Time Temp Pulse Resp B/P (MAP) Pulse Ox O2 Delivery O2 Flow Rate FiO2 07/08/24 15:00 100 16 149/95 (113) 96 07/08/24 12:00 77 16 159/70 (99) 98 07/08/24 10:37 109 07/08/24 10:12 20 98 Room Air* 0 21 07/08/24 10:00 99 14 150/98 (115) 100 07/08/24 09:36 22 98 Room Air* 0 21 07/08/24 09:27 99 18 133/80 (97) 98 07/08/24 09:27 99 18 98 Room Air 07/08/24 07:01 98.1 91 28 129/75 (93) 96 07/08/24 07:01 24 100 Room Air* 0 21 Lab Test 07/08/24 10:25 07/08/24 10:24 07/08/24 10:00 Range/Units Urine Color Light-yellow Yellow Urine Clarity Clear Clear Urine pH 5.5 5.0-9.0 Urine Specific [place] 1.021 1.001-1.035 Urine Protein Trace H Negative Urine Ketones Negative Negative Urine Blood Negative Negative /uL Urine Nitrite Negative Negative Urine Bilirubin Negative Negative Urine Urobilinogen Normal Negative mg/dL Urine Leukocyte Esterase Negative Negative /uL Urine RBC 2 0 - 4 /hpf Urine WBC 2 0 - 5 /hpf Urine Squamous Epithelial Cells Few <5 /hpf Urine Bacteria Few H None Seen /hpf Urine Glucose 4+ H Normal mg/dL Influenza Type A Antigen Negative Negative Influenza Type B Antigen Negative Negative SARS-CoV-2 Antigen (Rapid) Negative NEGATIVE White Blood Count 6.9 4.4-10.8 10^3/uL Red Blood Count 4.98 4.0-5.20 10^6/uL Hemoglobin 15.7 12.2-16.2 g/dL Hematocrit 46.4 H 36.0-46.0 % Mean Corpuscular Volume 93.1 80.0-100.0 fL Mean Corpuscular Hemoglobin 31.6 28.0-32.0 pg Mean Corpuscular Hemoglobin Concent 33.9 32.0-36.0 g/dL Red Cell Distribution Width 12.9 11.8-14.3 % Platelet Count 242 140-450 10^3/uL Mean Platelet Volume 8.3 6.9-10.8 fL Neutrophils (%) (Auto) 54.3 37.0-80.0 % Lymphocytes (%) (Auto) 28.1 10.0-50.0 % Monocytes (%) (Auto) 5.8 0.0-12.0 % Eosinophils (%) (Auto) 10.0 H 0.0-7.0 % Basophils (%) (Auto) 1.8 0.0-2.0 % Neutrophils # (Auto) 3.7 1.6-8.6 10 ^3/uL Lymphocytes # (Auto) 1.9 0.4-5.4 10 ^3/uL Monocytes # (Auto) 0.4 0-1.3 10 ^3/uL Eosinophils # (Auto) 0.7 0-0.8 10 ^3/uL Basophils # (Auto) 0.1 0-0.2 10 ^3/uL Nucleated Red Blood Cells 0.1 % Sodium Level 139 136-145 mmol/L Potassium Level 4.1 3.5-5.1 mmol/L Chloride Level 104 98-107 mmol/L Carbon Dioxide Level 27 20-31 mmol/L Anion Gap 8 5-15 Blood Urea Nitrogen 12 9-23 mg/dL Creatinine 1.18 H 0.550-1.02 mg/dL Glomerular Filtration Rate Calc 65 >90 mL/min BUN/Creatinine Ratio 10.2 10.0-20.0 Serum Glucose 249 H 74-106 mg/dL Calcium Level 10.1 8.7-10.4 mg/dL Magnesium Level 2.1 1.6-2.6 mg/dL Total Bilirubin 0.7 0.2-1.0 mg/dL Aspartate Amino Transferase (AST) 45 H 13-40 U/L Alanine Aminotransferase (ALT) 55 H 7-40 U/L Alkaline Phosphatase 95 46-116 U/L Total Protein 7.3 5.7-8.2 g/dL Albumin 4.8 3.2-4.8 g/dL Beta HCG, Quantitative 0.6 L 1.5-4.2 mIU/mL Current Medications Medications (Trade) Dose Ordered Sig/Meagan Route Start Time Stop Time Status Last Admin Albuterol (Ventolin Medneb) 2.5 mg ONCE ONCE NEB 07/08/24 09:00 07/08/24 09:01 DC 07/08/24 09:36 Ipratropium [place] (Atrovent Medneb) 0.5 mg ONCE ONCE NEB 07/08/24 09:00 07/08/24 09:01 DC 07/08/24 09:36 Albuterol (Ventolin Medneb) 5 mg ONCE ONCE NEB 07/08/24 10:00 07/08/24 10:01 DC 07/08/24 10:12 Ipratropium [place] (Atrovent Medneb) 0.5 mg ONCE ONCE NEB 07/08/24 10:00 07/08/24 10:01 DC 07/08/24 10:12 Methylprednisolone Sodium Succinate (Solu Medrol) 125 mg ONCE ONCE IV 07/08/24 10:00 07/08/24 10:01 DC 07/08/24 10:09 [place] [id number] Ph: [phone] DIAGNOSTIC IMAGING Diagnostic Imaging Report : [id number] Signed PATIENT: REINA BLUNT ACCT: [id number] UNIT: [id number] : 1995 LOC: ER ROOM / BED: / AGE / SEX: 28 / F ADM STATUS: REG ER SERVICE ORDERING PHYSICIAN: ELADIO WOODS MD PROCEDURE(s): CXR2 - CHEST TWO VIEWS ROUTINE REASON: sob ORDER NUMBER(s): [id number], ACCESSION NUMBER(s): [id number] XY CHEST TWO VIEWS ROUTINE CLINICAL HISTORY: sob COMPARISON: XY CHEST TWO VIEWS ROUTINE on DOS: 07/04/24 TECHNIQUE: Frontal and lateral view of the chest was obtained FINDINGS: Lines and Tubes: None Lungs: No focal consolidation. Pleura: No effusion. No pneumothorax. Cardiomediastinal contours: Unremarkable Bones: No acute osseous abnormality. IMPRESSION: No acute cardiopulmonary disease. ATED BY: NAREN TRAN MD DICTATED DATE/TIME: 07/08/24 1231 SIGNED BY: NAREN TRAN MD SIGNED DATE/TIME: 07/08/24 1231 CC: X-Ray, Labs, Meds, VS Comment COURSE IN THE EMERGENCY DEPARTMENT EVENTFUL PATIENT CAME IN BECAUSE OF SHORTNESS OF BREATH NAUSEA VOMITING PRODUCTIVE COUGH FOR ONE WEEK THIS IS THE 3RD VISIT HAS BEEN TWICE VISITING TREATED NOT FEELING BETTER MOSTLY SHORT OF BREATH RESPIRATORY RATE IS STILL 28 PULSE OX NOTE 96 PULSE RATE 91 CHEST X-RAY IS NORMAL EKG SHOWS SINUS TACHYCARDIA AT 109 WITH LEFT ATRIAL ENLARGEMENT INFLUENZA A NEGATIVE INFLUENZA B NEGATIVE COVID-19 NEGATIVE CBC NORMAL CMP BLOOD SUGAR IS 241 URINE SHOWS 4+ GLUCOSE AND BACTERIA MAGNESIUM 2.1 NEGATIVE LIVER ENZYMES ELEVATED UDS PATIENT WILL BE ADMITTED FOR FURTHER CARE MULTIPLE VISIT PATIENT NOT BETTER Time of 1ST Reevaluation: 09:23 Reevaluation 1ST: Unchanged Time of 2ND Reevaluation: 16:18 Reevaluation 3RD: Unchanged Patient Education/Counseling: Diagnosis, Treatment, Prognosis Family Education/Counseling: No Family Present Additional Information The following tests were ordered, and results were reviewed by me:RAPID INFLUENZA A&B, COVID, CBC, CMP, MAGNESIUM, XY CHEST 2 VIEWS, UA, EKG, BETA HCG Additional Information was gathered from interviewing the following independent historians: EMT I reviewed and agreed with the following test results read by other providers: XY CHEST 2 VIEWS, I discussed treatment and results with medical personnel and patient Departure 1 Departure Time of Disposition: 16:22 Impression: Primary Impression: Shortness of breath Additional Impressions: Asthmatic bronchitis Qualified Codes: J45.41 - Moderate persistent asthma with (acute) exacerbation Cannabinoid hyperemesis syndrome Uncontrolled diabetes mellitus Qualified Codes: E11.65 - Type 2 diabetes mellitus with hyperglycemia Bacteriuria Obesity Disposition: 09 ADMITTED INPATIENT Admit to: Tele Condition: Serious Critical Care Note Critical Care Time?: No Stability Stability form required: Yes Unstable for transfer: Telemetry monitoring (Telemetry monitoring required), Requires medication (Requires Med for stabilization) Heart Score Heart Score: Heart Score Response (Comments) Value History N/A 0 EKG Normal 0 Age <45 0 Risk Factors 1 or 2 risk factors 1 Troponin N/A 0 Total 1 I personally scribed for ELADIO WOODS MD ([email or web address]) on 07/08/24 at 09:34. Electronically submitted by Duyen Denton ([email or web address]). I personally scribed for ELADIO WOODS MD ([email or web address]) on 07/08/24 at 09:57. Electronically submitted by Duyen Denton ([email or web address]). I personally scribed for ELADIO WOODS MD ([email or web address]) on 07/08/24 at 10:18. Electronically submitted by Duyen Denton ([email or web address]). I personally scribed for ELADIO WOODS MD ([email or web address]) on 07/08/24 at 12:54. Electronically submitted by Duyen Denton ([email or web address]). ELADIO WOODS MD Jul 08, 2024 09:34
[2024-07-08] MEDS: ALBUTEROL SULF 2.5 MG/0.5ML(0.5%) NEB SOLN NEB ONE ×2 (09:36→10:12)
[2024-07-08] MEDS: IPRATROPIUM BROM 0.5 MG/2.5ML INH SOL NEB ONE ×2 (09:36→10:12)
[2024-07-08] MEDS: methylPREDNISolone SOD SUCC 125 MG/2 ML VL IV ONE (10:09)
[2024-07-08] MEDS: SODIUM CHLORIDE 0.9% 1,000 ML IV ONE (10:12)
[2024-07-08 10:21] LABS: Basophils # (auto) 0.1 10 ^3/uL (0-0.2); Basophils % (auto) 1.8 % (0.0-2.0); Eosinophils # (auto) 0.7 10 ^3/uL (0-0.8); Hematocrit 46.4 % (36.0-46.0); Hemoglobin 15.7 g/dL (12.2-16.2); Lymphocytes # (auto) 1.9 10 ^3/uL (0.4-5.4); Lymphocytes % (auto) 28.1 % (10.0-50.0); Mean Corpuscular Hemoglobin 31.6 pg (28.0-32.0); Mean Corpuscular Hgb Conc. 33.9 g/dL (32.0-36.0); Mean Corpuscular Volume 93.1 fL (80.0-100.0); Monocytes # (auto) 0.4 10 ^3/uL (0-1.3); Monocytes % (auto) 5.8 % (0.0-12.0); Neutrophils # (auto) 3.7 10 ^3/uL (1.6-8.6); Neutrophils % (auto) 54.3 % (37.0-80.0); Nucleated Red Blood Cells % 0.1 %; Platelet Count (auto) 242 10^3/uL (140-450); Red Blood Cells 4.98 10^6/uL (4.0-5.20); Red Cell Distribution Width 12.9 % (11.8-14.3); White Blood Cell 6.9 10^3/uL (4.4-10.8)
--- NOTE | 2024-07-08 10:38 | ECG ---
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
[2024-07-08 10:50] LABS: Alkaline Phosphatase 95 U/L (46-116); Anion Gap 8 (5-15); BUN/Creatinine Ratio 10.2 (10.0-20.0); Blood Urea Nitrogen 12 mg/dL (9-23); Calcium 10.1 mg/dL (8.7-10.4); Carbon Dioxide 27 mmol/L (20-31); Chloride 104 mmol/L (98-107); Magnesium 2.1 mg/dL (1.6-2.6); Potassium 4.1 mmol/L (3.5-5.1); Sodium 139 mmol/L (136-145)
[2024-07-08 10:51] LABS: Bilirubin, Total 0.7 mg/dL (0.2-1.0); Total Protein 7.3 g/dL (5.7-8.2)
[2024-07-08 10:56] LABS: Alanine Aminotransferase 55 U/L (7-40); Albumin 4.8 g/dL (3.2-4.8); Aspartate Aminotransferase 45 U/L (13-40); Glucose 249 mg/dL (74-106)
[2024-07-08 12:00] LABS: Urine Bacteria FEW /hpf (None Seen); Urine Blood Negative /uL (Negative); Urine Clarity Clear (Clear); Urine Color Light-Yellow (Yellow); Urine Protein, UAD TRACE (Negative); Urine Specific Gravity 1.021 (1.001-1.035); Urine Squamous Epithelial Cell FEW /hpf (<5); Urine Urobilinogen Normal (Negative); Urine WBC 2 /hpf (0 - 5); Urine pH 5.5 (5.0-9.0)
[2024-07-08 12:14] LABS: Rapid Influenza A Negative (Negative); Rapid Influenza B Negative (Negative)
[2024-07-08 12:15] LABS: COVID19 ANTIGEN SOFIA FIA NEGATIVE (NEGATIVE)
--- NOTE | 2024-07-08 12:33 | DVH ---
XY CHEST TWO VIEWS ROUTINE CLINICAL HISTORY: sob COMPARISON: XY CHEST TWO VIEWS ROUTINE on DOS: 07/04/24 TECHNIQUE: Frontal and lateral view of the chest was obtained FINDINGS: Lines and Tubes: None Lungs: No focal consolidation. Pleura: No effusion. No pneumothorax. Cardiomediastinal contours: Unremarkable Bones: No acute osseous abnormality. IMPRESSION: No acute cardiopulmonary disease.
[2024-07-08] MEDS ORDERED: ONDANSETRON HCL 4 MG/2 ML VIAL IV PRN (18:30)
[2024-07-08] MEDS ORDERED: TEMAZEPAM 15 MG CAP PO PRN (18:30)
[2024-07-08] MEDS ORDERED: ACETAMINOPHEN 325 MG TAB PO PRN (18:30)
[2024-07-08 19:16] VITALS: BP 149/101; PULSE 99; RESP 14; TEMP 98.1; O2SAT 96
[2024-07-08 19:49] VITALS: PULSE 120; RESP 20; O2SAT 96
--- NOTE | 2024-07-08 20:39 | DVHHP2 ---
History of Present Illness Reason for Visit: Shortness for breath History of Present Illness 28-year-old female presents for evaluation of shortness for breath. Patient reports a one-week history of shortness for breath with a productive cough. She states being seen in another institution two days ago for similar complaints. She reports not being able to take deep breaths due to chest pain that radiates to her back and cough. Past Medical History Depression Past Surgical History and cholecystectomy Family History Noncontributory Smoke: No ALCOHOL: none Drugs: None Lives: with Family Review of Systems Review of Systems Review of systems are currently negative otherwise addressed in HPI. Allergies: Coded Allergies: NO KNOWN ALLERGIES (Unverified , 01/26/19) Medications Current Medications Medications Dose Ordered Sig/Meagan Route Start Time Stop Time Status Last Admin Dose Admin Albuterol 2.5 mg Q6HPRN PRN NEB 07/08/24 18:30 Azithromycin 250 ml @ 125 mls/hr DAILY IV 07/09/24 10:00 Lamotrigine 25 mg Q12HR PO 07/08/24 22:00 Gabapentin 100 mg BID PO 07/08/24 22:00 Temazepam 15 mg QHSP PRN PO 07/08/24 18:30 Ondansetron HCl 4 mg Q4HP PRN IV 07/08/24 18:30 Acetaminophen 650 mg Q6HP PRN PO 07/08/24 18:30 Exam Vital Signs Vital Signs Date Time Temp Pulse Resp B/P (MAP) Pulse Ox O2 Delivery O2 Flow Rate FiO2 07/08/24 19:49 97.7 117 20 134/87 (103) 96 97.7 07/08/24 19:49 Room Air* 0 21 Exam Gen: 28-year-old female in mild distress Skin: Warm, dry, normal color and texture, no rash. HEENT: Normocephalic atraumatic, mucous membranes moist and pink. Neck: Cervical and supraclavicular nodes normal without enlargement, trachea is midline, thyroid gland is normal without masses. Pulmonary: Diminished breath sounds bilaterally Cardiac: Regular rate and rhythm. No murmur Abdomen: Soft, nontender, nondistended, bowel sounds present all 4 quadrants, no guarding, no rigidity, no organomegaly. Extremities: No cyanosis, clubbing, no edema Neuro: Cranial nerves II through XII grossly intact, normal affect and speech, no focal motor deficits. Labs/Xrays ORDERING PHYSICIAN: ELADIO WOODS MD PROCEDURE(s): CXR2 - CHEST TWO VIEWS ROUTINE REASON: sob ORDER NUMBER(s): [id number], ACCESSION NUMBER(s): [id number] XY CHEST TWO VIEWS ROUTINE CLINICAL HISTORY: sob COMPARISON: XY CHEST TWO VIEWS ROUTINE on DOS: 07/04/24 TECHNIQUE: Frontal and lateral view of the chest was obtained FINDINGS: Lines and Tubes: None Lungs: No focal consolidation. Pleura: No effusion. No pneumothorax. Cardiomediastinal contours: Unremarkable Bones: No acute osseous abnormality. IMPRESSION: No acute cardiopulmonary disease. Labs Test 07/08/24 10:25 07/08/24 10:24 07/08/24 10:00 Range/Units Urine Color Light-yellow Yellow Urine Clarity Clear Clear Urine pH 5.5 5.0-9.0 Urine Specific [place] 1.021 1.001-1.035 Urine Protein Trace H Negative Urine Ketones Negative Negative Urine Blood Negative Negative /uL Urine Nitrite Negative Negative Urine Bilirubin Negative Negative Urine Urobilinogen Normal Negative mg/dL Urine Leukocyte Esterase Negative Negative /uL Urine RBC 2 0 - 4 /hpf Urine WBC 2 0 - 5 /hpf Urine Squamous Epithelial Cells Few <5 /hpf Urine Bacteria Few H None Seen /hpf Urine Glucose 4+ H Normal mg/dL Influenza Type A Antigen Negative Negative Influenza Type B Antigen Negative Negative SARS-CoV-2 Antigen (Rapid) Negative NEGATIVE White Blood Count 6.9 4.4-10.8 10^3/uL Red Blood Count 4.98 4.0-5.20 10^6/uL Hemoglobin 15.7 12.2-16.2 g/dL Hematocrit 46.4 H 36.0-46.0 % Mean Corpuscular Volume 93.1 80.0-100.0 fL Mean Corpuscular Hemoglobin 31.6 28.0-32.0 pg Mean Corpuscular Hemoglobin Concent 33.9 32.0-36.0 g/dL Red Cell Distribution Width 12.9 11.8-14.3 % Platelet Count 242 140-450 10^3/uL Mean Platelet Volume 8.3 6.9-10.8 fL Neutrophils (%) (Auto) 54.3 37.0-80.0 % Lymphocytes (%) (Auto) 28.1 10.0-50.0 % Monocytes (%) (Auto) 5.8 0.0-12.0 % Eosinophils (%) (Auto) 10.0 H 0.0-7.0 % Basophils (%) (Auto) 1.8 0.0-2.0 % Neutrophils # (Auto) 3.7 1.6-8.6 10 ^3/uL Lymphocytes # (Auto) 1.9 0.4-5.4 10 ^3/uL Monocytes # (Auto) 0.4 0-1.3 10 ^3/uL Eosinophils # (Auto) 0.7 0-0.8 10 ^3/uL Basophils # (Auto) 0.1 0-0.2 10 ^3/uL Nucleated Red Blood Cells 0.1 % Sodium Level 139 136-145 mmol/L Potassium Level 4.1 3.5-5.1 mmol/L Chloride Level 104 98-107 mmol/L Carbon Dioxide Level 27 20-31 mmol/L Anion Gap 8 5-15 Blood Urea Nitrogen 12 9-23 mg/dL Creatinine 1.18 H 0.550-1.02 mg/dL Glomerular Filtration Rate Calc 65 >90 mL/min BUN/Creatinine Ratio 10.2 10.0-20.0 Serum Glucose 249 H 74-106 mg/dL Calcium Level 10.1 8.7-10.4 mg/dL Magnesium Level 2.1 1.6-2.6 mg/dL Total Bilirubin 0.7 0.2-1.0 mg/dL Aspartate Amino Transferase (AST) 45 H 13-40 U/L Alanine Aminotransferase (ALT) 55 H 7-40 U/L Alkaline Phosphatase 95 46-116 U/L Total Protein 7.3 5.7-8.2 g/dL Albumin 4.8 3.2-4.8 g/dL Beta HCG, Quantitative 0.6 L 1.5-4.2 mIU/mL Assessment/Plan Assessment/Plan Assessment Acute respiratory distress Acute pneumonitis Acute kidney injury Morbid obesity Plan Admit the patient to Med surge to the hospitalist Jw fitzgeralds Azithromycin D-dimer pending Resume home medications Continue treatment per orders Plan discussed with: Patient My Orders Orders - AL GARZA AGACNP Procedure Category Date Status Time Albuterol Medneb PHA 07/08/24 In Process (Ventolin Medneb) 18:30 Azithromycin 500mg/ PHA 07/09/24 In Process 250ml (Zithromax 50 10:00 Lamotrigine Tablet PHA 07/08/24 In Process (Lamictal Tablet) 22:00 Gabapentin Capsule PHA 07/08/24 In Process (Neurontin Capsule) 22:00 Regular Diet DIET 07/08/24 Transmitted Dinner Basic Metabolic Panel LAB 07/09/24 Verified 04:00 Admit ADMIT 07/08/24 Transmitted 18:18 Temazepam (Restoril) PHA 07/08/24 In Process 18:30 Ondansetron Hcl PHA 07/08/24 In Process (Zofran) 18:30 Complete Blood Count LAB 07/09/24 Verified 04:00 Condition: Stable YANETH 07/08/24 In Process 18:18 Acetaminophen Tablet PHA 07/08/24 In Process (Tylenol Tablet) 18:30 Bedrest With Bathroom YANETH 07/08/24 In Process Privileg 18:18 D-Dimer LAB 07/08/24 Transmitted 20:32 Date of Service: Jul 08, 2024 Billing Provider: AL GARZA Common Visit Codes: [id number] INP/OBS CARE (HIGH) AL GARZA Jul 08, 2024 20:39
[2024-07-08] MEDS: GABAPENTIN 100 MG CAP PO SCH (22:00)
[2024-07-08] MEDS: lamoTRIgine 25 MG TAB PO SCH (22:00)
[2024-07-09 05:08] LABS: Basophils # (auto) 0.3 10 ^3/uL (0-0.2); Basophils % (auto) 2.4 % (0.0-2.0); Eosinophils # (auto) 0 10 ^3/uL (0-0.8); Eosinophils % (auto) 0.1 % (0.0-7.0); Hematocrit 41.6 % (36.0-46.0); Hemoglobin 14.2 g/dL (12.2-16.2); Lymphocytes # (auto) 1.3 10 ^3/uL (0.4-5.4); Lymphocytes % (auto) 11.9 % (10.0-50.0); Mean Corpuscular Volume 93.9 fL (80.0-100.0); Monocytes # (auto) 0.6 10 ^3/uL (0-1.3); Neutrophils % (auto) 80.6 % (37.0-80.0); Platelet Count (auto) 237 10^3/uL (140-450); Red Blood Cells 4.43 10^6/uL (4.0-5.20); Red Cell Distribution Width 13.2 % (11.8-14.3); White Blood Cell 11.2 10^3/uL (4.4-10.8)
[2024-07-09 05:17] LABS: Anion Gap 8 (5-15); Carbon Dioxide 26 mmol/L (20-31); Chloride 103 mmol/L (98-107); Potassium 4.2 mmol/L (3.5-5.1); Sodium 137 mmol/L (136-145)
[2024-07-09 05:19] LABS: Calcium 10.2 mg/dL (8.7-10.4)
[2024-07-09 05:23] LABS: Blood Urea Nitrogen 18 mg/dL (9-23)
[2024-07-09 05:25] LABS: Glucose 336 mg/dL (74-106)
[2024-07-09] MEDS ORDERED: LORA-655 PO (06:43)
[2024-07-09 06:44] VITALS: PULSE 72; RESP 18; O2SAT 98
[2024-07-09] MEDS: ALBUTEROL SULF 2.5 MG/0.5ML(0.5%) NEB SOLN NEB PRN (06:44)
[2024-07-09 06:50] VITALS: PULSE 68; RESP 16; O2SAT 99
[2024-07-09 08:00] VITALS: PULSE 78; RESP 16; O2SAT 96
[2024-07-09 08:05] VITALS: BP 138/84; PULSE 84; RESP 20; TEMP 97.6; O2SAT 95
[2024-07-09] MEDS: AZITHROMYCIN 500MG/ 250ML 250 ML IV SCH (10:00)
[2024-07-09 10:42] VITALS: BP 138/84; PULSE 84; RESP 20; TEMP 97.6; O2SAT 95
[2024-07-09] MEDS ORDERED: QUET1TAB11 PO (10:59)
[2024-07-09] MEDS ORDERED: GAB100C PO (10:59)
[2024-07-09] MEDS ORDERED: LAMO25TA27 (10:59)
[2024-07-09] MEDS ORDERED: AZIT-43 (11:02)
[2024-07-09 11:39] VITALS: BP 136/89; PULSE 79; RESP 20; TEMP 98; O2SAT 98
[2024-07-09] MEDS ORDERED: PRED20TA2 PO (12:53)
--- NOTE | 2024-07-09 12:59 | DVHDS2 ---
Discharge Summary Date of Admission Jul 08, 2024 at 18:18 Date of Discharge: Jul 09, 2024 Admitting Diagnosis Acute respiratory distress Labs/Diagnostic Data: Laboratory Results Test 07/09/24 04:40 07/08/24 21:10 07/08/24 10:25 07/08/24 10:24 White Blood Count 11.2 10^3/uL (4.4-10.8) Red Blood Count 4.43 10^6/uL (4.0-5.20) Hemoglobin 14.2 g/dL (12.2-16.2) Hematocrit 41.6 % (36.0-46.0) Mean Corpuscular Volume 93.9 fL (80.0-100.0) Mean Corpuscular Hemoglobin 32.0 pg (28.0-32.0) Mean Corpuscular Hemoglobin Concent 34.0 g/dL (32.0-36.0) Red Cell Distribution Width 13.2 % (11.8-14.3) Platelet Count 237 10^3/uL (140-450) Mean Platelet Volume 8.8 fL (6.9-10.8) Neutrophils (%) (Auto) 80.6 % (37.0-80.0) Lymphocytes (%) (Auto) 11.9 % (10.0-50.0) Monocytes (%) (Auto) 5.0 % (0.0-12.0) Eosinophils (%) (Auto) 0.1 % (0.0-7.0) Basophils (%) (Auto) 2.4 % (0.0-2.0) Neutrophils # (Auto) 9.0 10 ^3/uL (1.6-8.6) Lymphocytes # (Auto) 1.3 10 ^3/uL (0.4-5.4) Monocytes # (Auto) 0.6 10 ^3/uL (0-1.3) Eosinophils # (Auto) 0 10 ^3/uL (0-0.8) Basophils # (Auto) 0.3 10 ^3/uL (0-0.2) Nucleated Red Blood Cells 0.0 % Sodium Level 137 mmol/L (136-145) Potassium Level 4.2 mmol/L (3.5-5.1) Chloride Level 103 mmol/L (98-107) Carbon Dioxide Level 26 mmol/L (20-31) Anion Gap 8 (5-15) Blood Urea Nitrogen 18 mg/dL (9-23) Creatinine 1.20 mg/dL (0.550-1.02) Glomerular Filtration Rate Calc 63 mL/min (>90) BUN/Creatinine Ratio 15.0 (10.0-20.0) Serum Glucose 336 mg/dL (74-106) Calcium Level 10.2 mg/dL (8.7-10.4) D-Dimer, Quantitative 0.22 mg/L FEU (0.0-0.49) Urine Color Light-yellow (Yellow) Urine Clarity Clear (Clear) Urine pH 5.5 (5.0-9.0) Urine Specific [place] 1.021 (1.001-1.035) Urine Protein Trace (Negative) Urine Ketones Negative (Negative) Urine Blood Negative /uL (Negative) Urine Nitrite Negative (Negative) Urine Bilirubin Negative (Negative) Urine Urobilinogen Normal mg/dL (Negative) Urine Leukocyte Esterase Negative /uL (Negative) Urine RBC 2 /hpf (0 - 4) Urine WBC 2 /hpf (0 - 5) Urine Squamous Epithelial Cells Few /hpf (<5) Urine Bacteria Few /hpf (None Seen) Urine Glucose 4+ mg/dL (Normal) Influenza Type A Antigen Negative (Negative) Influenza Type B Antigen Negative (Negative) SARS-CoV-2 Antigen (Rapid) Negative (NEGATIVE) Test 07/08/24 10:00 Magnesium Level 2.1 mg/dL (1.6-2.6) Total Bilirubin 0.7 mg/dL (0.2-1.0) Aspartate Amino Transferase (AST) 45 U/L (13-40) Alanine Aminotransferase (ALT) 55 U/L (7-40) Alkaline Phosphatase 95 U/L (46-116) Total Protein 7.3 g/dL (5.7-8.2) Albumin 4.8 g/dL (3.2-4.8) Beta HCG, Quantitative 0.6 mIU/mL (1.5-4.2) Other Laboratory Tests 07/09/24 04:40 Brief Hx & Hospital Course: History of Present Illness 28-year-old female presents for evaluation of shortness for breath. Patient reports a one-week history of shortness for breath with a productive cough. She states being seen in another institution two days ago for similar complaints. She reports not being able to take deep breaths due to chest pain that radiates to her back and cough. Course of hospitalization: Chest x-ray is negative for any acute pathology. Patient received treatment while in the emergency room, and after reassessment of the patient's wheezing has improved. She continues to be on room air. Long discussion was made with the patient regarding her plan of care. She states that she was feeling better with respect to her shortness of breath. She was agreeable to be discharged home and continue previously prescribed azithromycin Dosepak. Patient was will also continue using metered-dose inhaler as needed for shortness of breaths, as well as being prescribed prednisone 20 mg p.o. daily x5 days. The patient will follow up with the discharge Clinic in one week. All questions answered. Physical examination General: Alert and Oriented x3. No acute distress. Well-nourished. Eyes: EOMI. Anicteric. HENT: Moist mucous membranes. Lungs: Clear to auscultation bilaterally. No accessory muscle use. Cardiovascular: Regular rate and rhythm. No murmur. No JVD. Abdomen: Soft, non-tender and non-distended. No palpable masses. Extremities: No edema. Non-tender. Skin: No rashes or lesions. Warm. Neurologic: No focal neurological deficits. CN II-XII grossly intact, but not individually tested. Psychiatric: Cooperative. Appropriate mood and affect. Total time spent with patient discussing and formulating plan of care: 35 minutes. This medical document was created using an electronic medical record system with D[employer] dictation system. Although this document has been carefully reviewed, there may still be some phonetic and typographical errors. These areas are purely typographical due to imperfections of the software programs, and do not reflect any compromise in the patient's medical care. Condition at Discharge: Fair Final Diagnosis/Problems List Respiratory failure secondary to viral etiology Secondary Diagnosis: Obesity Anxiety disorder Depression Discharge Disposition: Home Discharge Instruct/Medications Diet: Regular Activity: No Restrictions, As Tolerated Follow Up/Referral: Discharge Clinic in one week Medications: Complete current azithromycin Dosepak Prednisone 20 mg p.o. daily x5 days 36 Discharge Statement: "Patient was advised to return to the ER or call 911 if any headaches, dizziness, shortness of breath, chest pain, abdominal pain, bleeding, fevers, or worsening of medical condition. Patient was counseled about treatment plan, medications, possible side effects, patientverbalized understanding. All questions were answered to the best of my ability. This discharge took greater then 30 minutes in planning, reviewing documentation, counseling the patient, and discussing with other team members." ASSESSMENT ASSESSMENT Assessment Respiratory failure secondary to viral etiology Date of Service: Jul 09, 2024 Billing Provider: RYLIE MEDINA NP Common Visit Codes: 63963-YLZ/OBS DISCH DAY >30min RYLIE MEDINA NP Jul 09, 2024 12:59
== END 2024-07-09 15:40 | disposition home or self-care (01) | DRG 133 ==
LOC: EDBD 06:53 → ER 06:53 → OVERFLOW 18:18
PROVIDERS: ADMIT Nurse Practitioner; ATTEND Nurse Practitioner Acute Care
DX: J96.90 Respiratory failure, unspecified, unspecified whether with hypoxia or hypercapnia (principal); B97.89 Other viral agents as the cause of diseases classified elsewhere; E66.01 Morbid (severe) obesity due to excess calories; Z20.822 Contact with and (suspected) exposure to COVID-19; F41.9 Anxiety disorder, unspecified; F32.A Depression, unspecified; E11.65 Type 2 diabetes mellitus with hyperglycemia; F12.90 Cannabis use, unspecified, uncomplicated; Z79.4 Long term (current) use of insulin; Z90.49 Acquired absence of other specified parts of digestive tract; Z68.37 Body mass index [BMI] 37.0-37.9, adult
CPT/HCPCS: 36415; 71046; 80048; 80053; 81001; 83735; 84702; 85025; 85379; 87426; 87804; 93005; 94640; 96374; G0378

== ENCOUNTER 2024-07-29 12:49 | Emergency (ER) | payer MEDICAID ==
[~2024-07-29] VITALS: Ht 160 cm; Wt 100.0 kg
[~2024-07-29 12:49] MED LIST changes: +AZIT-43; +GAB100C PO; +LAMO25TA27; +LORA-655 PO; +PRED20TA2 PO; +QUET1TAB11 PO
[2024-07-29 13:22] VITALS: BP 149/104; PULSE 107; RESP 18; O2SAT 96
== END 2024-07-29 16:25 | disposition left against medical advice (07) ==
LOC: ER 12:49
DX: R06.02 Shortness of breath (principal); R05.9 Cough, unspecified; R09.81 Nasal congestion; Z53.21 Procedure and treatment not carried out due to patient leaving prior to being seen by health care provider

== ENCOUNTER 2024-08-09 17:26 | Inpatient (IN) | payer MEDICAID ==
[~2024-08-09] VITALS: Ht 160 cm; Wt 120.0 kg
--- NOTE | 2024-08-09 17:48 | ECG ---
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
--- NOTE | 2024-08-09 18:07 | ED.PDOC ---
SOB-HPI HPI Comments HPI: Poor Historian. 28-year-old female presented earlier to urgent care for asthma exacerbation. She had three visits to urgent care this month alone. I spoke with the nurse practitioner abigail who gave me a verbal report on the phone. She stated that the patient is not improving despite DuoNeb treatment, Solu-Medrol, and Isaak ephin. They did swabs over the that were negative. She is still not show any significant improvement. They sent her to the ER for further evaluation and treatment. She was admitted to the hospital approximately a month ago. History of pneumonitis and asthma. Past Medical History:Anxiety and Depression, asthma Marijuana abuse, diabetes, obesity, substance abuse, Past Surgical History: Cholecystectomy and REVIEW OF SYSTEMS: CONSTITUTIONAL: Denies acute: fever, diaphoresis, chills, HEAD: Denies acute: headache, photophobia Eyes: Denies acute: Double vision, vision loss, eye pain, eye discharge. EARS: Denies acute: tinnitus, hearing loss, ear discharge, ear pain, THROAT: Denies acute: sore throat, swelling, difficulty swallowing , pain with swallowing, change in voice. NECK: Denies acute: neck pain, neck swelling, stiff neck. HEART: Denies acute : palpitations, LUNGS: Denies acute: cough, hemoptysis ABDOMEN: Denies acute: abdominal pain, Nausea, Vomiting, diarrhea, melena , hematemesis, hematochezia SKIN: Denies acute: rash, redness, lesions, itchiness. EXTREMITIES: Denies acute: calf pain, numbness, tingling, weakness, denies pain in extremity. Denies acute: Low back pain. Neuro: Denies acute: focal neurological deficit, motor or sensory focal neurological deficit, tremors, seizure like activity, confusion, dizziness, change in mental status, loss of bowel or bladder function, cauda equina like symptoms. : Denies acute: dysuria, hematuria, flank pain, increase in urinary frequency. PSYCH: Denies acute: hallucination, suicidal ideation, homicidal ideation. FEMALE: Denies acute: abnormal vaginal bleeding, foul odor, unusual discharge. PHYSICAL EXAM: General: [id number] acute distress, awake and alert. Head: normocephalic, atraumatic. Neck: supple, trachea is midline, no swelling. Throat: Normal phonation. Eyes:, no erythema, no purulent discharge, no proptosis, no icterus. Heart: regular rate, regular rhythm, no significant murmur appreciated. Lungs: Moderate apparent respiratory distress, Able to speak in full sentences. Noted bilateral wheezing, no rhonchi, no crackles. No stridors Abdomen: non tender to palpation, non distended, soft, no guarding, no rebound, + bowel sounds. Morbidly obese Neuro: Awake, Alert, oriented to name, self, situation, follows commands GCS=15. Speech is normal. Skin: no petechia, no purpura, no cyanosis, non-pale, not jaundice. Lower extremities: --no - Pitting edema no deformity, no focal swelling, no calf TTP. Makes eye contact. moves all four extremities. Face: no apparent facial droop. 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 Was a procedure done?: No Differential Dx Differential Diagnosis: Other (DDx include ACS, unstable angina, anxiety, PE, pneumothroax, neoplasm, cardiac ischemia, COPD, asthma, CHF, pleural effusion, tobacco abuse, pneumonia, hypoxia, hypercapnia, anemia., infection/sepsis., pulmonary edema. Asthma, Cardiac tamponade, infection.) X-Ray, Labs, Meds, VS Vital Signs Date Time Temp Pulse Resp B/P (MAP) Pulse Ox O2 Delivery O2 Flow Rate FiO2 08/09/24 18:29 20 99 Room Air* 0 21 08/09/24 18:29 98.2 101 20 140/87 (104) 99 08/09/24 18:10 20 98 Nasal Cannula* 1 24 08/09/24 17:46 102 Lab Test 08/09/24 18:29 Range/Units White Blood Count 6.2 4.4-10.8 10^3/uL Red Blood Count 4.88 4.0-5.20 10^6/uL Hemoglobin 15.4 12.2-16.2 g/dL Hematocrit 45.1 36.0-46.0 % Mean Corpuscular Volume 92.4 80.0-100.0 fL Mean Corpuscular Hemoglobin 31.5 28.0-32.0 pg Mean Corpuscular Hemoglobin Concent 34.1 32.0-36.0 g/dL Red Cell Distribution Width 13.6 11.8-14.3 % Platelet Count 207 140-450 10^3/uL Mean Platelet Volume 8.4 6.9-10.8 fL Neutrophils (%) (Auto) 57.5 37.0-80.0 % Lymphocytes (%) (Auto) 24.1 10.0-50.0 % Monocytes (%) (Auto) 5.9 0.0-12.0 % Eosinophils (%) (Auto) 12.1 H 0.0-7.0 % Basophils (%) (Auto) 0.4 0.0-2.0 % Neutrophils # (Auto) 3.6 1.6-8.6 10 ^3/uL Lymphocytes # (Auto) 1.5 0.4-5.4 10 ^3/uL Monocytes # (Auto) 0.4 0-1.3 10 ^3/uL Eosinophils # (Auto) 0.7 0-0.8 10 ^3/uL Basophils # (Auto) 0 0-0.2 10 ^3/uL Nucleated Red Blood Cells 0.2 % Sodium Level 142 136-145 mmol/L Potassium Level 4.1 3.5-5.1 mmol/L Chloride Level 105 98-107 mmol/L Carbon Dioxide Level 26 20-31 mmol/L Anion Gap 11 5-15 Blood Urea Nitrogen 9 9-23 mg/dL Creatinine 1.07 H 0.550-1.02 mg/dL Glomerular Filtration Rate Calc 73 >90 mL/min BUN/Creatinine Ratio 8.4 L 10.0-20.0 Serum Glucose 177 H 74-106 mg/dL Lactic Acid Level 2.0 0.4-2.0 mmol/L Calcium Level 9.9 8.7-10.4 mg/dL Magnesium Level 1.8 1.6-2.6 mg/dL Total Bilirubin 0.7 0.2-1.0 mg/dL Aspartate Amino Transferase (AST) 43 H 13-40 U/L Alanine Aminotransferase (ALT) 60 H 7-40 U/L Alkaline Phosphatase 100 46-116 U/L Troponin I High Sensitivity < 3 L </=34 ng/L B-Type Natriuretic Peptide 5.07 0-100 pg/mL Total Protein 6.9 5.7-8.2 g/dL Albumin 4.7 3.2-4.8 g/dL Thyroid Stimulating Hormone (TSH) Pending Plasma/Serum Blood Alcohol 3.1 <10 mg/dL Current Medications Medications (Trade) Dose Ordered Sig/Meagan Route Start Time Stop Time Status Last Admin Sodium Chloride 500 ml @ 500 mls/hr Q1H ONCE IV 08/09/24 17:45 08/09/24 18:44 DC 08/09/24 21:26 Dexamethasone Sodium Phosphate (Decadron Injection) 10 mg ONCE ONCE IM 08/09/24 17:45 08/09/24 17:46 DC 08/09/24 21:06 Albuterol (Ventolin Medneb) 2.5 mg ONCE ONCE NEB 08/09/24 17:45 08/09/24 17:46 DC 08/09/24 18:10 Ipratropium [place] (Atrovent Medneb) 1 mg ONCE ONCE NEB 08/09/24 17:45 08/09/24 17:46 DC 08/09/24 18:10 [place] [id number] Ph: [phone] DIAGNOSTIC IMAGING Diagnostic Imaging Report : [id number] Signed PATIENT: REINA BLUNT ACCT: [id number] UNIT: [id number] : 1995 LOC: ER ROOM / BED: / AGE / SEX: 28 / F ADM STATUS: REG ER SERVICE 1732 ORDERING PHYSICIAN: MARIIA PASTRANA DO PROCEDURE(s): CXRP - CHEST PORTABLE REASON: sob ORDER NUMBER(s): [id number], ACCESSION NUMBER(s): [id number] CHEST RADIOGRAPH Indication: sob Technique: Single frontal view of the chest was obtained Comparison: XY CHEST XRAY 1 VIEW on DOS: 09/23/23, XY CHEST PORTABLE on DOS: 08/26/23, XY CHEST XRAY 1 VIEW on DOS: 06/30/23 FINDINGS: Lines and Tubes: None Lungs: No focal consolidation. Pleura: No effusion. No pneumothorax. Cardiomediastinal contours: Unremarkable Bones: No acute osseous abnormality. IMPRESSION: No acute cardiopulmonary disease. ATED BY: DORINDA SMITH DO DICTATED DATE/TIME: 08/09/241853 SIGNED BY: DORINDA SMITH DO SIGNED DATE/TIME: 08/09/241853 CC: Time of 1ST Reevaluation: 20:33 Reevaluation 1ST: Improved Patient Education/Counseling: Diagnosis, Treatment Family Education/Counseling: No Family Present Comments Patient presented with the above HPI.--dyspnea----workup was initiated. patient was found with the above mentioned diagnosis. the following medications were ordered: please refer to order lists of meds and tests obtained by myself Dr. Pastrana. Patient ED course and VS have been stabilized. Patient has been reassessed in the ED and remained in a stable condition. Pertinent incidental findings were discussed with the patient and/or family. Patient/family voices understanding and is agreeable with plan. Patient has been observed in the ED adequate length of time to insure improvement/stability. Escalation of care considered: Consideration of escalation to observation or admission Patient was ADMITTED to the medicine team for further evaluation and treatment of their presentation. All the reports of any imaging studies that were ordered by myself were reviewed by myself. Departure 1 Departure Time of Disposition: 18:07 Impression: Primary Impression: Acute asthma exacerbation Disposition: ADMITTED INPATIENT Admit to: [facility] Condition: Guarded Discharged With: Self Critical Care Note Critical Care Time?: Yes (35 min-critical care time only) Heart Score Heart Score: Heart Score Response (Comments) Value History Slightly Suspicious 0 EKG Normal 0 Age <45 0 Risk Factors 1 or 2 risk factors 1 Troponin Normal limit 0 Total 1 I personally scribed for MARIIA PASTRANA DO ([email or web address]) on 08/09/24 at 20:51. Electronically submitted by Tanvir Clark ([email or web address]). MARIIA PASTRANA DO Aug 09, 2024 18:07
[2024-08-09] MEDS: ALBUTEROL SULF 2.5 MG/0.5ML(0.5%) NEB SOLN NEB ONE (18:10)
[2024-08-09] MEDS: IPRATROPIUM BROM 0.5 MG/2.5ML INH SOL NEB ONE (18:10)
--- NOTE | 2024-08-09 18:56 | DVH ---
CHEST RADIOGRAPH Indication: sob Technique: Single frontal view of the chest was obtained Comparison: XY CHEST XRAY 1 VIEW on DOS: 09/23/23, XY CHEST PORTABLE on DOS: 08/26/23, XY CHEST XRAY 1 EW on DOS: 06/30/23 FINDINGS: Lines and Tubes: None Lungs: No focal consolidation. Pleura: No effusion. No pneumothorax. Cardiomediastinal contours: Unremarkable Bones: No acute osseous abnormality. IMPRESSION: No acute cardiopulmonary disease.
[2024-08-09 19:03] LABS: Basophils # (auto) 0 10 ^3/uL (0-0.2); Basophils % (auto) 0.4 % (0.0-2.0); Eosinophils # (auto) 0.7 10 ^3/uL (0-0.8); Eosinophils % (auto) 12.1 % (0.0-7.0); Hematocrit 45.1 % (36.0-46.0); Hemoglobin 15.4 g/dL (12.2-16.2); Lymphocytes # (auto) 1.5 10 ^3/uL (0.4-5.4); Lymphocytes % (auto) 24.1 % (10.0-50.0); Mean Corpuscular Hemoglobin 31.5 pg (28.0-32.0); Mean Corpuscular Hgb Conc. 34.1 g/dL (32.0-36.0); Mean Corpuscular Volume 92.4 fL (80.0-100.0); Monocytes # (auto) 0.4 10 ^3/uL (0-1.3); Monocytes % (auto) 5.9 % (0.0-12.0); Neutrophils # (auto) 3.6 10 ^3/uL (1.6-8.6); Neutrophils % (auto) 57.5 % (37.0-80.0); Nucleated Red Blood Cells % 0.2 %; Platelet Count (auto) 207 10^3/uL (140-450); Red Blood Cells 4.88 10^6/uL (4.0-5.20); Red Cell Distribution Width 13.6 % (11.8-14.3); White Blood Cell 6.2 10^3/uL (4.4-10.8)
[2024-08-09 19:25] LABS: Albumin 4.7 g/dL (3.2-4.8); Alkaline Phosphatase 100 U/L (46-116); Anion Gap 11 (5-15); BUN/Creatinine Ratio 8.4 (10.0-20.0); Bilirubin, Total 0.7 mg/dL (0.2-1.0); Calcium 9.9 mg/dL (8.7-10.4); Carbon Dioxide 26 mmol/L (20-31); Chloride 105 mmol/L (98-107); Potassium 4.1 mmol/L (3.5-5.1); Sodium 142 mmol/L (136-145); Total Protein 6.9 g/dL (5.7-8.2)
[2024-08-09 19:26] LABS: Alanine Aminotransferase 60 U/L (7-40); Aspartate Aminotransferase 43 U/L (13-40); Blood Urea Nitrogen 9 mg/dL (9-23); Glucose 177 mg/dL (74-106)
[2024-08-09] MEDS ORDERED: NITROGLYCERIN 0.4 MG SL TAB SL PRN (21:00)
[2024-08-09] MEDS ORDERED: ACETAMINOPHEN 325 MG TAB PO PRN (21:00)
[2024-08-09] MEDS: DexAMETHasone SOD PHOS 10MG/1ML VIAL INJ IM ONE (21:06)
[2024-08-09] MEDS: SODIUM CHLORIDE 0.9% 500 ML IV ONE (21:26)
[2024-08-09 21:30] LABS: Blood Alcohol 3.1 mg/dL (<10); Magnesium 1.8 mg/dL (1.6-2.6)
[2024-08-09] MEDS: SODIUM CHLOR 0.9% PF (SALINE LOCK) 10ML VIAL/SYR IV SCH (22:00)
--- NOTE | 2024-08-09 22:19 | DVHHPRES ---
History of Present Illness Resident Creating Document: MELO MATTHEWS RESIDENT History of Present Illness REINA BLUNT is a 28-year-old female with the most significant PMH presented to the ED with the chief complaints of shortness of breath. Patient reported she has been having shortness of breath for 2 months for which she admitted, visited ED and urgent care for multiple times patient reported patient always fills shortness of breath, breathing treatments makes it better again she gets shortness of breath. Patient also reported chest pain when she takes deep breaths. Patient reported she had mild stressors, anxiety, depression but not related to this. On my assessment patient denies fever, nausea, vomiting, diarrhea, and other acute associated symptoms. Today patient went to urgent care, patient did not show any improvement despite DuoNeb treatment, Solu- Medrol, and Rocephin. They did swabs over the that were negative. PMH: Anxiety, depression PSH: , cholecystectomy Family history: Asthma in father Social history: Lives with family. Marijuana abuse but stopped but denies other drug abuse and no alcohol Allergies: No known allergies Review of Systems Constitutional: No: Fever, Chills, Sweats, Weakness, Malaise, Other Eyes: No: Pain, Vision change, Conjunctivae inflammation, Eyelid inflammation, Other, Redness ENT: No: Ear pain, Ear discharge, Nose pain, Nose discharge, Nose congestion, Mouth pain, Mouth swelling, Throat pain, Throat swelling, Other Respiratory: Shortness of breath, SOB with excertion, Wheezing Cardiovascular: No: Chest Pain, Palpitations, Orthopnea, Paroxysmal Noc. Dyspnea, Edema, Lt Headedness, Other Gastrointestinal: No: Nausea, Vomiting, Abdominal Pain, Diarrhea, Constipation, Melena, Hematochezia, Other Genitourinary: No Dysuria, No Frequency, No Incontinence, No Hematuria, No Retention, No Other Musculoskeletal: No: other, neck pain, shoulder pain, arm pain, back pain, hand pain, leg pain, foot pain Skin: No: Rash, Lesions, Jaundice, Bruising, Other Neurological: No: Weakness, Numbness, Incoordination, Change in speech, Confusion, Seizures, Other Allergies: Coded Allergies: NO KNOWN ALLERGIES (Unverified , 01/26/19) Medications Current Medications Medications Dose Ordered Sig/Meagan Route Start Time Stop Time Status Last Admin Dose Admin Sodium Chloride 10 ml Q8HR IV 08/09/24 22:00 Enoxaparin Sodium 40 mg DAILY SC 08/10/24 10:00 Acetaminophen 650 mg Q6HP PRN PO 08/09/24 21:00 Nitroglycerin 0.4 mg Q5MINP PRN SL 08/09/24 21:00 Morphine Sulfate 2 mg Q30M PRN IV 08/09/24 21:00 Exam Vital Signs Vital Signs Date Time Temp Pulse Resp B/P (MAP) Pulse Ox O2 Delivery O2 Flow Rate FiO2 08/09/24 21:28 103 20 96 Room Air 08/09/24 21:28 99.0 138/95 (109) 99.0 08/09/24 18:29 0 21 Exam Pt is lying on bed General Appearance: Alert, Oriented X3, Cooperative, Not in acute distress HEENT: Atraumatic, Mucous membranes moist/pink Respiratory: Clear to auscultation, Normal air movement, wheezing Cardiovascular: Regular rate, Normal S1, Normal S2, No murmurs Abdominal: Active bowel sounds, Soft, no distention, no tenderness Extremities: No edema, Normal pulses, No tenderness/swelling Skin: No Significant rash, except past surgical scars Neuro: Normal speech, sensorimotor deficits none Psych/Mental Status: Mental status NL, Mood NL Nurse was there as sharperone during examination Labs/Xrays Labs Test 08/09/24 21:30 08/09/24 21:18 08/09/24 18:29 Range/Units D-Dimer, Quantitative 0.38 0.0-0.49 mg/L FEU White Blood Count 6.2 4.4-10.8 10^3/uL Red Blood Count 4.88 4.0-5.20 10^6/uL Hemoglobin 15.4 12.2-16.2 g/dL Hematocrit 45.1 36.0-46.0 % Mean Corpuscular Volume 92.4 80.0-100.0 fL Mean Corpuscular Hemoglobin 31.5 28.0-32.0 pg Mean Corpuscular Hemoglobin Concent 34.1 32.0-36.0 g/dL Red Cell Distribution Width 13.6 11.8-14.3 % Platelet Count 207 140-450 10^3/uL Mean Platelet Volume 8.4 6.9-10.8 fL Neutrophils (%) (Auto) 57.5 37.0-80.0 % Lymphocytes (%) (Auto) 24.1 10.0-50.0 % Monocytes (%) (Auto) 5.9 0.0-12.0 % Eosinophils (%) (Auto) 12.1 H 0.0-7.0 % Basophils (%) (Auto) 0.4 0.0-2.0 % Neutrophils # (Auto) 3.6 1.6-8.6 10 ^3/uL Lymphocytes # (Auto) 1.5 0.4-5.4 10 ^3/uL Monocytes # (Auto) 0.4 0-1.3 10 ^3/uL Eosinophils # (Auto) 0.7 0-0.8 10 ^3/uL Basophils # (Auto) 0 0-0.2 10 ^3/uL Nucleated Red Blood Cells 0.2 % Sodium Level 142 136-145 mmol/L Potassium Level 4.1 3.5-5.1 mmol/L Chloride Level 105 98-107 mmol/L Carbon Dioxide Level 26 20-31 mmol/L Anion Gap 11 5-15 Blood Urea Nitrogen 9 9-23 mg/dL Creatinine 1.07 H 0.550-1.02 mg/dL Glomerular Filtration Rate Calc 73 >90 mL/min BUN/Creatinine Ratio 8.4 L 10.0-20.0 Serum Glucose 177 H 74-106 mg/dL Lactic Acid Level 2.0 0.4-2.0 mmol/L Calcium Level 9.9 8.7-10.4 mg/dL Magnesium Level 1.8 1.6-2.6 mg/dL Total Bilirubin 0.7 0.2-1.0 mg/dL Aspartate Amino Transferase (AST) 43 H 13-40 U/L Alanine Aminotransferase (ALT) 60 H 7-40 U/L Alkaline Phosphatase 100 46-116 U/L Troponin I High Sensitivity < 3 L </=34 ng/L B-Type Natriuretic Peptide 5.07 0-100 pg/mL Total Protein 6.9 5.7-8.2 g/dL Albumin 4.7 3.2-4.8 g/dL Thyroid Stimulating Hormone (TSH) 0.54 L 0.55-4.78 uIU/mL Plasma/Serum Blood Alcohol 3.1 <10 mg/dL Assessment/Plan Assessment/Plan # Acute hypoxic respiratory failure # ? Asthma exacerbation undiagnosed -breathing treatments with albuterol and ipratropium -oxygen NC 2 L -monitor -CXR showed no acute changes # Morbid obesity BMI 46.9 -Nutritonal councelling # Depression without signs of homicidal or suicidal ideation PUD PPX: Not indicated VTE PPX: Lovenox Diet: Regular Goals of care discussed with the patient for more than 29 minutes: Full code status Case discussed with Dr. Mcclellan, patient and nurse. Plan discussed with: Patient My Orders Orders - MELO MATTHEWS RESIDENT Procedure Category Date Status Time Admit ADMIT 08/09/24 Transmitted 20:59 Allergies YANETH 08/09/24 In Process 20:59 Code Status CODE 08/09/24 Transmitted 20:59 Sodium Chloride Lock PHA 08/09/24 In Process (Saline Lock Ns) 22:00 Enoxaparin Sodium PHA 08/10/24 In Process (Lovenox) 10:00 Complete Blood Count LAB 08/10/24 Verified 04:00 Comprehensive LAB 08/10/24 Verified Metabolic Panel 04:00 Cardiac DIET 08/10/24 Transmitted Diet-2gna,Lofat,Lochol Breakfast Condition: Stable YANETH 08/09/24 In Process 20:59 Acetaminophen Tablet PHA 08/09/24 In Process (Tylenol Tablet) 21:00 Nitroglycerin PHA 08/09/24 In Process Sublingual (Ntrostat 21:00 Morphine Sulfate PHA 08/09/24 In Process Injection 21:00 Oxygen By Nasal RT 08/09/24 Transmitted Cannula 20:59 Stat Ekg For Chest YANETH 08/09/24 In Process Pain 20:59 Notify Of Changes YANETH 08/09/24 In Process From Base 20:59 Drug Screen LAB 08/09/24 Logged 21:03 Rapid Influenza A&B LAB 08/09/24 In Process 21:03 Urinalysis LAB 08/09/24 Logged 21:03 Date of Service: Aug 09, 2024 Billing Provider: JENNIE MCCLELLAN MD Common Visit Codes: 62621-[id number] INP/OBS CARE (HIGH) MELO MATTHEWS RESIDENT Aug 09, 2024 22:19 JENNIE MCCLELLAN MD Aug 12, 2024 10:10
[2024-08-09 22:26] LABS: COVID19 ANTIGEN SOFIA FIA NEGATIVE (NEGATIVE)
[2024-08-09 22:27] LABS: Rapid Influenza A Negative (Negative); Rapid Influenza B Negative (Negative)
[2024-08-09] MEDS: MORPHINE SULFATE INJ 2 MG/ml SYRG IV PRN (23:33)
[2024-08-09 23:43] LABS: Urine Bacteria None Seen /hpf (None Seen)
[2024-08-09 23:50] LABS: Urine Blood TRACE /uL (Negative); Urine Budding Yeast OCCASIONAL /hpf (None Seen); Urine Clarity Turbid (Clear); Urine Color Light-Yellow (Yellow); Urine Protein, UAD 1+ (Negative); Urine Specific Gravity 1.026 (1.001-1.035); Urine Squamous Epithelial Cell MOD /hpf (<5); Urine Urobilinogen Normal (Negative); Urine WBC 16 /HPF (0-5)
[2024-08-10] VITALS (7 sets, daily range): BP systolic 129–153; BP diastolic 89–103; PULSE 94–102; RESP 18–20; TEMP 98–98.5; O2SAT 94–100
[2024-08-10] MEDS: IPRATROPIUM BROM 0.5 MG/2.5ML INH SOL NEB SCH
[2024-08-10 00:05] LABS: Cannabinoid Screen, Urine Pos (NEGATIVE)
[2024-08-10 00:18] LABS: Amphetamine Screen, Urine Neg (NEGATIVE); Barbiturate Scree,Urine Neg (NEGATIVE); Benzodiazephine Screen, Urine Neg (NEGATIVE); Cocaine Screen, Urine Neg (NEGATIVE); Opiate Scree,Urine Neg (NEGATIVE); Phencyclidine Screen, Urine Neg (NEGATIVE)
[2024-08-10] MEDS: ALBUTEROL SULF 2.5 MG/0.5ML(0.5%) NEB SOLN NEB PRN (03:13)
[2024-08-10 06:23] LABS: Basophils # (auto) 0 10 ^3/uL (0-0.2); Basophils % (auto) 0.2 % (0.0-2.0); Eosinophils # (auto) 0 10 ^3/uL (0-0.8); Eosinophils % (auto) 0.1 % (0.0-7.0); Hematocrit 45.2 % (36.0-46.0); Lymphocytes # (auto) 0.6 10 ^3/uL (0.4-5.4); Lymphocytes % (auto) 6.8 % (10.0-50.0); Mean Corpuscular Hemoglobin 31.2 pg (28.0-32.0); Mean Corpuscular Hgb Conc. 33.2 g/dL (32.0-36.0); Mean Corpuscular Volume 93.9 fL (80.0-100.0); Monocytes # (auto) 0.1 10 ^3/uL (0-1.3); Monocytes % (auto) 0.8 % (0.0-12.0); Neutrophils # (auto) 7.6 10 ^3/uL (1.6-8.6); Neutrophils % (auto) 92.1 % (37.0-80.0); Nucleated Red Blood Cells % 0.1 %; Platelet Count (auto) 218 10^3/uL (140-450); Red Blood Cells 4.81 10^6/uL (4.0-5.20); Red Cell Distribution Width 13.2 % (11.8-14.3); White Blood Cell 8.2 10^3/uL (4.4-10.8)
[2024-08-10 06:30] LABS: Alkaline Phosphatase 87 U/L (46-116); Anion Gap 14 (5-15); Aspartate Aminotransferase 31 U/L (13-40); BUN/Creatinine Ratio 11.9 (10.0-20.0); Blood Urea Nitrogen 16 mg/dL (9-23); Calcium 9.7 mg/dL (8.7-10.4); Chloride 101 mmol/L (98-107); Potassium 4.7 mmol/L (3.5-5.1)
[2024-08-10 06:31] LABS: Bilirubin, Total 0.8 mg/dL (0.2-1.0); Total Protein 7.3 g/dL (5.7-8.2)
[2024-08-10 06:48] LABS: Carbon Dioxide 19 mmol/L (20-31); Sodium 134 mmol/L (136-145)
[2024-08-10 06:49] LABS: Alanine Aminotransferase 53 U/L (7-40); Albumin 4.9 g/dL (3.2-4.8); Glucose 461 mg/dL (74-106)
[2024-08-10] MEDS ORDERED: ENOXAPARIN SOD 40 MG/0.4 ML SYRINGE SC SCH (10:00)
--- NOTE | 2024-08-10 13:25 | DVHDS2 ---
Discharge Summary Date of Admission Aug 09, 2024 at 20:59 Date of Discharge: Aug 10, 2024 Labs/Diagnostic Data: Laboratory Results Test 08/10/24 05:38 08/09/24 23:26 08/09/24 21:30 08/09/24 21:18 White Blood Count 8.2 10^3/uL (4.4-10.8) Red Blood Count 4.81 10^6/uL (4.0-5.20) Hemoglobin 15.0 g/dL (12.2-16.2) Hematocrit 45.2 % (36.0-46.0) Mean Corpuscular Volume 93.9 fL (80.0-100.0) Mean Corpuscular Hemoglobin 31.2 pg (28.0-32.0) Mean Corpuscular Hemoglobin Concent 33.2 g/dL (32.0-36.0) Red Cell Distribution Width 13.2 % (11.8-14.3) Platelet Count 218 10^3/uL (140-450) Mean Platelet Volume 8.7 fL (6.9-10.8) Neutrophils (%) (Auto) 92.1 % (37.0-80.0) Lymphocytes (%) (Auto) 6.8 % (10.0-50.0) Monocytes (%) (Auto) 0.8 % (0.0-12.0) Eosinophils (%) (Auto) 0.1 % (0.0-7.0) Basophils (%) (Auto) 0.2 % (0.0-2.0) Neutrophils # (Auto) 7.6 10 ^3/uL (1.6-8.6) Lymphocytes # (Auto) 0.6 10 ^3/uL (0.4-5.4) Monocytes # (Auto) 0.1 10 ^3/uL (0-1.3) Eosinophils # (Auto) 0 10 ^3/uL (0-0.8) Basophils # (Auto) 0 10 ^3/uL (0-0.2) Nucleated Red Blood Cells 0.1 % Sodium Level 134 mmol/L (136-145) Potassium Level 4.7 mmol/L (3.5-5.1) Chloride Level 101 mmol/L (98-107) Carbon Dioxide Level 19 mmol/L (20-31) Anion Gap 14 (5-15) Blood Urea Nitrogen 16 mg/dL (9-23) Creatinine 1.35 mg/dL (0.550-1.02) Glomerular Filtration Rate Calc 55 mL/min (>90) BUN/Creatinine Ratio 11.9 (10.0-20.0) Serum Glucose 461 mg/dL (74-106) Calcium Level 9.7 mg/dL (8.7-10.4) Total Bilirubin 0.8 mg/dL (0.2-1.0) Aspartate Amino Transferase (AST) 31 U/L (13-40) Alanine Aminotransferase (ALT) 53 U/L (7-40) Alkaline Phosphatase 87 U/L (46-116) Total Protein 7.3 g/dL (5.7-8.2) Albumin 4.9 g/dL (3.2-4.8) Urine Color Light-yellow (Yellow) Urine Clarity Turbid (Clear) Urine pH 6.0 (5.0-9.0) Urine Specific [place] 1.026 (1.001-1.035) Urine Protein 1+ (Negative) Urine Ketones Trace (Negative) Urine Blood Trace /uL (Negative) Urine Nitrite Negative (Negative) Urine Bilirubin Negative (Negative) Urine Urobilinogen Normal mg/dL (Negative) Urine Leukocyte Esterase 2+ /uL (Negative) Urine RBC 11 /hpf (0 - 4) Urine Microscopic WBC 16 /HPF (0-5) Urine Squamous Epithelial Cells Mod /hpf (<5) Urine Bacteria None seen /hpf (None Seen) Urine Yeast (Budding) Occasional /hpf (None Urine Glucose 4+ mg/dL (Normal) Urine Opiates Screen Neg (NEGATIVE) Urine Fentanyl Screen Neg (NEGATIVE) Urine Barbiturates Screen Neg (NEGATIVE) Urine Phencyclidine Screen Neg (NEGATIVE) Urine Amphetamines Screen Neg (NEGATIVE) Urine Benzodiazepines Screen Neg (NEGATIVE) Urine Cocaine Screen Neg (NEGATIVE) Urine Cannabinoids Screen Pos (NEGATIVE) D-Dimer, Quantitative 0.38 mg/L FEU (0.0-0.49) Influenza Type A Antigen Negative (Negative) Influenza Type B Antigen Negative (Negative) SARS-CoV-2 Antigen (Rapid) Negative (NEGATIVE) Test 08/09/24 18:29 Lactic Acid Level 2.0 mmol/L (0.4-2.0) Magnesium Level 1.8 mg/dL (1.6-2.6) Troponin I High Sensitivity < 3 ng/L (</=34) B-Type Natriuretic Peptide 5.07 pg/mL (0-100) Thyroid Stimulating Hormone (TSH) 0.54 uIU/mL (0.55-4.78) Plasma/Serum Blood Alcohol 3.1 mg/dL (<10) Other Laboratory Tests 08/10/24 05:38 Brief Hx & Hospital Course: 28-year-old female with a known history of asthma, morbid obesity class three initially presented to the hospital with a and shortness of breaths found to have acute hypoxic respiratory failure secondary to acute asthma exacerbation. Patient was treated with a breathing treatment med nebs, O2 supplementation. Patient left against medical advice before completion of workup and treatment. Condition at Discharge: Undetermined Final Diagnosis/Problems List 1. Acute hypoxic respiratory failure secondary to acute asthma exacerbation 2. Acute asthma exacerbation 3. Morbid obesity classIII 4. The patient left against medical advice Discharge Disposition: AMA SNF Discharge Will this Physician continue t: No Discharge Statement: "Patient was advised to return to the ER or call 911 if any headaches, dizziness, shortness of breath, chest pain, abdominal pain, bleeding, fevers, or worsening of medical condition. Patient was counseled about treatment plan, medications, possible side effects, patientverbalized understanding. All questions were answered to the best of my ability. This discharge took greater then 30 minutes in planning, reviewing documentation, counseling the patient, and discussing with other team members." ASSESSMENT ASSESSMENT Assessment Date of Service: Aug 10, 2024 Billing Provider: SILVIANO MAY MD Common Visit Codes: 37799-JUG/OBS DISCH DAY <30MIN SILVIANO MAY MD Aug 10, 2024 13:25
== END 2024-08-10 10:14 | disposition left against medical advice (07) | DRG 133 ==
LOC: ER 17:26 → OVERFLOW 20:59
PROVIDERS: ATTEND Emergency Medicine
DX: J96.01 Acute respiratory failure with hypoxia (principal); J45.901 Unspecified asthma with (acute) exacerbation; E66.01 Morbid (severe) obesity due to excess calories; E11.9 Type 2 diabetes mellitus without complications; Z53.29 Procedure and treatment not carried out because of patient's decision for other reasons; Z20.822 Contact with and (suspected) exposure to COVID-19; E66.813 Obesity, class 3; F41.9 Anxiety disorder, unspecified; F32.A Depression, unspecified; Z79.899 Other long term (current) drug therapy; Z68.42 Body mass index [BMI] 45.0-49.9, adult
CPT/HCPCS: 36415; 71045; 80053; 80307; 80320; 81001; 83605; 83735; 83880; 84443; 84484; 85025; 85379; 87426; 87804; 93005; 94640; 96361; 96372; 96374; 99291; G0378; J1100

== ENCOUNTER 2024-09-30 19:40 | Emergency (ER) | payer MEDICAID ==
[~2024-09-30] VITALS: Ht 162.6 cm; Wt 117.1 kg
--- NOTE | 2024-09-30 20:12 | ED.PDOC ---
SOB-HPI HPI Comments 28 y/o morbidly obese F presents with c/o shortness of breath and nonproductive cough, today. Patient is a poor historian. She reports on having symptoms, intermittently, for the past 3-4 months, with multiple accompanying ED visits. She states on being brought from [facility] urgent care after being evaluated for recent onset of symptoms after no improvement or relief with 5 at-home albuterol inhaler use, earlier today. Prior to ED arrival, patient admits to being given 1 breathing treatment and 125mg Solumedrol IM injection by urgent care staff. She denies any wheezing, congestion, chest pain, fever, chills, or other associated symptoms or modifiers at this time. Vitals: pulse rate of 97, blood pressure of 159/95, respiratory rate of 16, SpO2 of 96%RA, and a temperature of 98.2F Past medical history: asthma, hypertension, anxiety, depression Past surgical history: cholecystectomy, HPI: Poor Historian. Past Medical History: Past Surgical History: REVIEW OF SYSTEMS: CONSTITUTIONAL: Denies acute: fever, diaphoresis, chills, generalized weakness. HEAD: Denies acute: headache, photophobia Eyes: Denies acute: Double vision, vision loss, eye pain, eye discharge. EARS: Denies acute: tinnitus, hearing loss, ear discharge, ear pain, THROAT: Denies acute: sore throat, swelling, difficulty swallowing , pain with swallowing, change in voice. NECK: Denies acute: neck pain, neck swelling, stiff neck. HEART: Denies acute : chest pain, palpitations, LUNGS: Denies acute: wheezing, hemoptysis ABDOMEN: Denies acute: abdominal pain, Nausea, Vomiting, diarrhea, melena , hematemesis, hematochezia SKIN: Denies acute: rash, redness, lesions, itchiness. EXTREMITIES: Denies acute: calf pain, numbness, tingling, weakness, denies pain in extremity. Denies acute: Low back pain. Neuro: Denies acute: focal neurological deficit, motor or sensory focal neurological deficit, tremors, seizure like activity, confusion, dizziness, change in mental status, loss of bowel or bladder function, cauda equina like symptoms. : Denies acute: dysuria, hematuria, flank pain, increase in urinary frequency. PSYCH: Denies acute: hallucination, suicidal ideation, homicidal ideation. FEMALE: Denies acute: abnormal vaginal bleeding, foul odor, unusual discharge. PHYSICAL EXAM: General: ----mild----acute distress, awake and alert. Head: normocephalic, atraumatic. Neck: supple, trachea is midline, no swelling. Throat: Normal phonation. Eyes:, no erythema, no purulent discharge, no proptosis, no icterus. Heart: regular rate, regular rhythm, no significant murmur appreciated. Lungs: Minimal respiratory distress, Able to speak in full sentences. No wheezing, no rhonchi, no crackles. No stridors Clear to auscultation bilaterally. Abdomen: non tender to palpation, non distended, soft, no guarding, no rebound, + bowel sounds. Obese Neuro: Awake, Alert, oriented to name, self, situation, follows commands GCS=15. Speech is normal. Skin: no petechia, no purpura, no cyanosis, non-pale, not jaundice. Lower extremities: --no - Pitting edema no deformity, no focal swelling, no calf TTP. Makes eye contact. moves all four extremities. Face: no apparent facial droop. Ambulating in the ED independently. ED COURSE: Time Seen by MD: 19:50 Primary Care Provider: UNKNOWN Reviewed notes: Nurses Notes, Medications, Allergies Information Source: Patient Mode of Arrival: Wheelchair Past Medical History PAST MEDICAL HISTORY: Anxiety, Asthma, Depression Surgical History: Cholecystectomy, TRANSPORT ANALYST History: No Pertinent TRANSPORT ANALYST History Family History Family History: Reviewed,noncontributory to illness, Family hx of HTN Social History Smoker: Non-Smoker Alcohol: Denies ETOH Use Drugs: Marijuana Lives In: Home EKG EKG : Pulse Rate (adult): 96 [place]: Normal Cardiac Rhythm: NSR Block: None Hypertrophy: None ST: Normal Was a procedure done? Was a procedure done?: No Differential Dx Differential Diagnosis: Other (DDx include ACS, unstable angina, anxiety, PE, pneumothroax, neoplasm, cardiac ischemia, COPD, asthma, CHF, pleural effusion, tobacco abuse, pneumonia, hypoxia, hypercapnia, anemia., infection/sepsis., pulmonary edema. Asthma, Cardiac tamponade, infection.) X-Ray, Labs, Meds, VS Vital Signs Date Time Temp Pulse Resp B/P (MAP) Pulse Ox O2 Delivery O2 Flow Rate FiO2 09/30/24 22:35 98.2 85 18 134/91 (105) 95 98.2 09/30/24 22:35 85 18 95 Room Air 09/30/24 20:22 16 95 Room Air* 0 21 09/30/24 20:12 96 09/30/24 20:01 98.2 97 16 159/95 (116) 96 98.2 09/30/24 19:52 98 Lab Test 09/30/24 21:04 09/30/24 20:10 09/30/24 20:09 09/30/24 20:05 Range/Units Troponin I High Sensitivity < 3 L < 3 L </=34 ng/L Urine Color Light-yellow Yellow Urine Clarity Turbid H Clear Urine pH 5.5 5.0-9.0 Urine Specific [place] 1.017 1.001-1.035 Urine Protein Trace H Negative Urine Ketones Negative Negative Urine Blood 2+ H Negative /uL Urine Nitrite Negative Negative Urine Bilirubin Negative Negative Urine Urobilinogen Normal Negative mg/dL Urine Leukocyte Esterase Negative Negative /uL Urine RBC 10 0 - 4 /hpf Urine Microscopic WBC 4 0-5 /HPF Urine Squamous Epithelial Cells Few <5 /hpf Urine Uric Acid Crystals Few None Seen /hpf Urine Bacteria Few H None Seen /hpf Urine Mucus Few None Seen Urine Glucose Trace Normal mg/dL Urine Test Negative Negative White Blood Count 6.9 4.4-10.8 10^3/uL Red Blood Count 4.99 4.0-5.20 10^6/uL Hemoglobin 15.7 12.2-16.2 g/dL Hematocrit 46.1 H 36.0-46.0 % Mean Corpuscular Volume 92.4 80.0-100.0 fL Mean Corpuscular Hemoglobin 31.5 28.0-32.0 pg Mean Corpuscular Hemoglobin Concent 34.1 32.0-36.0 g/dL Red Cell Distribution Width 13.4 11.8-14.3 % Platelet Count 218 140-450 10^3/uL Mean Platelet Volume 8.4 6.9-10.8 fL Neutrophils (%) (Auto) 37.0-80.0 % Lymphocytes (%) (Auto) 10.0-50.0 % Monocytes (%) (Auto) 0.0-12.0 % Eosinophils (%) (Auto) 0.0-7.0 % Basophils (%) (Auto) 0.0-2.0 % Neutrophils # (Auto) 1.6-8.6 10 ^3/uL Lymphocytes # (Auto) 0.4-5.4 10 ^3/uL Monocytes # (Auto) 0-1.3 10 ^3/uL Differential Total Cells Counted 100.0 100 Neutrophils % (Manual) 44 37.0-80.0 Band Neutrophils % (Manual) 0 Lymphocytes % (Manual) 25 10.0-50.0 Monocytes % (Manual) 7 0-12 Eosinophils % (Manual) 24 H 0-7 Basophils % (Manual) 0 0.0-2.0 Metamyelocytes % (manual) 0 Myelocytes % (Manual) 0 Promyelocytes % (Manual) 0 Blast Cells % (Manual) 0 Reactive Lymphocytes 0 Platelet Estimate Adequate Red Blood Cell Morphology Normal D-Dimer, Quantitative 0.36 0.0-0.49 mg/L FEU Sodium Level 143 136-145 mmol/L Potassium Level 4.1 3.5-5.1 mmol/L Chloride Level 108 H 98-107 mmol/L Carbon Dioxide Level 25 20-31 mmol/L Anion Gap 10 5-15 Blood Urea Nitrogen 12 9-23 mg/dL Creatinine 1.17 H 0.550-1.02 mg/dL Glomerular Filtration Rate Calc 65 >90 mL/min BUN/Creatinine Ratio 10.3 10.0-20.0 Serum Glucose 135 H 74-106 mg/dL Lactic Acid Level 1.5 0.4-2.0 mmol/L Calcium Level 10.0 8.7-10.4 mg/dL Total Bilirubin 0.7 0.2-1.0 mg/dL Aspartate Amino Transferase (AST) 39 13-40 U/L Alanine Aminotransferase (ALT) 54 H 7-40 U/L Alkaline Phosphatase 80 46-116 U/L B-Type Natriuretic Peptide 3.89 0-100 pg/mL Total Protein 7.4 5.7-8.2 g/dL Albumin 4.8 3.2-4.8 g/dL Influenza Type A Antigen Negative Negative Influenza Type B Antigen Negative Negative SARS-CoV-2 Antigen (Rapid) Negative NEGATIVE Current Medications Medications (Trade) Dose Ordered Sig/Meagan Route Start Time Stop Time Status Last Admin Albuterol (Ventolin Medneb) 2.5 mg ONCE ONCE NEB 09/30/24 20:15 09/30/24 20:16 DC 09/30/24 20:21 Ipratropium [place] (Atrovent Medneb) 1 mg ONCE ONCE NEB 09/30/24 20:15 09/30/24 20:16 DC 09/30/24 20:21 Acetaminophen/ Hydrocodone Bitart ([place] 5/325MG Tab) 1 tab ONCE ONCE PO 09/30/24 20:15 09/30/24 20:16 DC 09/30/24 22:41 [place] [address] Ph: [phone] DIAGNOSTIC IMAGING Diagnostic Imaging Report : [id number] Signed PATIENT: REINA BLUNT ACCT: [id number] UNIT: [id number] : 1995 LOC: ER ROOM / BED: / AGE / SEX: 28 / F ADM STATUS: REG ER SERVICE 00 ORDERING PHYSICIAN: MARIIA PASTRANA DO PROCEDURE(s): CXRP - CHEST PORTABLE REASON: sob ORDER NUMBER(s): [id number], ACCESSION NUMBER(s): [id number] CHEST RADIOGRAPH Indication: sob Technique: Single frontal view of the chest was obtained COMPARISON: XY CHEST PORTABLE on DOS: 08/09/24 FINDINGS: Lines and Tubes: None Lungs: Clear Pleura: No effusion. No pneumothorax. Cardiomediastinal contours: Unremarkable IMPRESSION: No abnormality. ATED BY: ABDULAZIZ SUTTON MD DICTATED DATE/TIME: 09/30/242101 SIGNED BY: ABDULAZIZ SUTTON MD SIGNED DATE/TIME: 09/30/242101 CC: Time of 1ST Reevaluation: 19:50 Reevaluation 1ST: Unchanged Time of 2ND Reevaluation: 23:18 Reevaluation 2ND: Resolved Patient Education/Counseling: Diagnosis, Treatment Family Education/Counseling: No Family Present Comments Patient presented with the above HPI.--dyspnea/asthma exacerbation----workup was initiated. patient was found with the above mentioned diagnosis. the following medications were ordered: please refer to order lists of meds and tests obtained by myself Dr. Pastrana. Patient ED course and VS have been stabilized. Patient has been reassessed in the ED and remained in a stable condition. Pertinent incidental findings were discussed with the patient and/or family. Patient/family voices understanding and is agreeable with plan. Patient has been observed in the ED adequate length of time to insure improvement/stability. Escalation of care considered: Consideration of escalation to observation or admission Patient was DISCHARGED home in a stable condition. All the reports of any imaging studies that were ordered by myself were reviewed by myself. Departure 1 Departure Time of Disposition: 23:16 Impression: Primary Impression: Acute asthma exacerbation Disposition: HOME / SELF CARE / HOMELESS Condition: Stable Additional Instructions: Additional instructions: You MUST follow-up with your primary care/family doctor in 1 to 2 days. If you are unable to see your primary care/family doctor, please return to our emergency room for re-assessment and re-evaluation in 1 to 2 days. Return to the emergency room here in our facility or to the nearest ER [facility] if your symptoms change or worsen. CONSULTATIONS: you MUST Follow-up for consultation as soon as possible with: --cardiology and pulmonology in 1-2 days. Please call for appointment. You MUST call the consultants office yourself to make an appointment. You may need to arrange that through your insurance and/or your primary/family doctor. If you are unable to see the center lead consultant in 1 to 2 days, you must return to our emergency room (or any other ER of your choice) for re-assessment and re- evaluation. Adequate fluid hydration. Monitor blood pressure at home at least 3 times a day. e-Prescriptions Prednisone (Prednisone) 20 Mg Tab 20 MG PO DAILY for 5 Days, #5 TAB Prov: MARIIA PASTRANA DO 09/30/24 Discharged With: Self Critical Care Note Critical Care Time?: Yes (35 min-critical care time only) Heart Score Heart Score: Heart Score Response (Comments) Value History Slightly Suspicious 0 EKG Normal 0 Age <45 0 Risk Factors 1 or 2 risk factors 1 Troponin Normal limit 0 Total 1 I personally scribed for MARIIA PASTRANA DO ([email or web address]) on 09/30/24 at 20:12. Electronically submitted by Terence Figueroa ([email or web address]). I personally scribed for MARIIA PASTRANA DO ([email or web address]) on 09/30/24 at 20:44. Electronically submitted by Terence Figueroa ([email or web address]). MARIIA PASTRANA DO Sep 30, 2024 20:12
[2024-09-30] MEDS: ALBUTEROL SULF 2.5 MG/0.5ML(0.5%) NEB SOLN NEB ONE (20:21)
[2024-09-30] MEDS: IPRATROPIUM BROM 0.5 MG/2.5ML INH SOL NEB ONE (20:21)
--- NOTE | 2024-09-30 20:26 | ECG ---
[facility] Test Date: 2024-09-30 Test Time: 19:52:32 Pat Name: REINA BLUNT Department: ED Room: Gender: F [place]: : 1995 Requested By: MARIIA PASTRANA Order Number: [id number] Reading MD: Jeremie Best Measurements Intervals [place] Rate: 98 P: 60 PA: 132 QRS: 1 QRSD: 81 T: 38 QT: 340 QTc: 435 Interpretive Statements Sinus rhythm Electronically Signed On 10-02-2024 21:03:16 PDT by Jeremie Best Please click the below link to view image of tracing.
[2024-09-30 20:32] LABS: Hematocrit 46.1 % (36.0-46.0); Hemoglobin 15.7 g/dL (12.2-16.2); Mean Corpuscular Hemoglobin 31.5 pg (28.0-32.0); Mean Corpuscular Hgb Conc. 34.1 g/dL (32.0-36.0); Mean Corpuscular Volume 92.4 fL (80.0-100.0); Platelet Count (auto) 218 10^3/uL (140-450); Red Blood Cells 4.99 10^6/uL (4.0-5.20); Red Cell Distribution Width 13.4 % (11.8-14.3); White Blood Cell 6.9 10^3/uL (4.4-10.8)
[2024-09-30 20:34] LABS: Band Neutrophils % (manual) 0; Basophils % (manual) 0 (0.0-2.0); Blast Cells 0; Metamyelocytes % 0; Myelocytes % 0; Promyelocytes % 0; Reactive Lymphocytes 0
[2024-09-30 20:54] LABS: Alkaline Phosphatase 80 U/L (46-116); Anion Gap 10 (5-15); Aspartate Aminotransferase 39 U/L (13-40); BUN/Creatinine Ratio 10.3 (10.0-20.0); Bilirubin, Total 0.7 mg/dL (0.2-1.0); Blood Urea Nitrogen 12 mg/dL (9-23); Carbon Dioxide 25 mmol/L (20-31); Potassium 4.1 mmol/L (3.5-5.1); Sodium 143 mmol/L (136-145); Total Protein 7.4 g/dL (5.7-8.2)
[2024-09-30 21:01] LABS: Eosinophils % (manual) 24 (0-7); Lymphocytes % (manual) 25 (10.0-50.0); Monocytes % (manual) 7 (0-12); Platelet Estimate Adequate; RBC Morphology Normal
[2024-09-30 21:03] LABS: Alanine Aminotransferase 54 U/L (7-40); Albumin 4.8 g/dL (3.2-4.8); Chloride 108 mmol/L (98-107); Glucose 135 mg/dL (74-106)
--- NOTE | 2024-09-30 21:04 | DVH ---
CHEST RADIOGRAPH Indication: sob Technique: Single frontal view of the chest was obtained COMPARISON: XY CHEST PORTABLE on DOS: 08/09/24 FINDINGS: Lines and Tubes: None Lungs: Clear Pleura: No effusion. No pneumothorax. Cardiomediastinal contours: Unremarkable IMPRESSION: No abnormality.
[2024-09-30 21:55] LABS: Rapid Influenza A Negative (Negative); Rapid Influenza B Negative (Negative)
[2024-09-30 21:56] LABS: COVID19 ANTIGEN SOFIA FIA NEGATIVE (NEGATIVE)
[2024-09-30 22:41] LABS: Urine Bacteria FEW /hpf (None Seen); Urine Blood 2+ /uL (Negative); Urine Clarity Turbid (Clear); Urine Color Light-Yellow (Yellow); Urine Mucus FEW (None Seen); Urine Protein, UAD TRACE (Negative); Urine Specific Gravity 1.017 (1.001-1.035); Urine Squamous Epithelial Cell FEW /hpf (<5); Urine Urobilinogen Normal (Negative); Urine WBC 4 /HPF (0-5); Urine pH 5.5 (5.0-9.0)
[2024-09-30] MEDS: HYDROcodone-ACET 5/325MG TAB PO ONE (22:41)
[2024-09-30] MEDS ORDERED: PRED20TA2 PO (23:19)
[2024-10-01 01:52] VITALS: BP 132/72; PULSE 89; RESP 19; TEMP 98.3; O2SAT 97
== END 2024-10-01 01:58 | disposition home or self-care (01) ==
LOC: ER 19:46
DX: J45.901 Unspecified asthma with (acute) exacerbation (principal); F41.9 Anxiety disorder, unspecified; F32.A Depression, unspecified; F12.90 Cannabis use, unspecified, uncomplicated; Z90.49 Acquired absence of other specified parts of digestive tract; Z20.822 Contact with and (suspected) exposure to COVID-19; Z32.02 Encounter for pregnancy test, result negative
CPT/HCPCS: 36415; 71045; 80053; 81001; 81025; 83605; 83880; 84484; 85007; 85027; 85379; 87426; 87804; 93005; 94640

== ENCOUNTER 2024-11-24 22:12 | Emergency (ER) | payer MEDICAID ==
[~2024-11-24] VITALS: Ht 162.6 cm; Wt 118.0 kg
--- NOTE | 2024-11-24 22:43 | ED.PDOC ---
History of Present Illness HPI Comments 29 y/o morbidly obese F presents with 3-4x day history of shortness of breath and congestion, with associated chest-wall pain. Per EMS report, patient has a relevant history of anxiety, acute hypoxic respiratory failure, asthma, bronchitis, chronic kidney failure stage II, hypertension, prediabetes, cholecys tectomy, and second-hand tobacco exposure. She was found on scene with diminished lung sounds and increased [id number], with a SpO2 of 97%RA. 12 lead EKG showed elevated T-waves. Remaining vitals stable and within normal limits. En route, 1x breathing treatment was administered, with moderate improvement. At time of assessment, patient states on difficulty breathing worsening with exertion, being awaken by it in the middle of the night, having to use pillows to modify her posture to obtain some form of relief, and no improvement or relief with asthma inhaler use at home. She reports previous episodes of difficulty breathing before, with last taking place 6x months ago. No recent sick contact endorsed. She denies having any cough, fever, chills, nausea, vomiting, or further associated symptoms. Patient reports that she follow up with the database specialist and has been diagnosed with asthma. Chief Complaint: Shortness of Breath Time Seen by MD: 22:20 Primary Care Provider: DR BEAN Reviewed Notes: Nurses Notes, Medications, Allergies Allergies: Coded Allergies: NO KNOWN ALLERGIES (Unverified , 01/26/19) Home Meds Active Scripts Ipratropium-Albuterol (Ipratropium Devon/Albut) 1 Todd Todd, 1 TODD IN Q4HPRN PRN for 5 Days, #30 UNITS Prov:KING PAIZ MD 11/25/24 Prednisone (Prednisone) 20 Mg Tab, 20 MG PO DAILY for 4 Days, #4 MG Prov:KING PAIZ MD 11/25/24 Prednisone (Prednisone) 20 Mg Tab, 20 MG PO DAILY for 5 Days, #5 TAB Prov:MARIIA PASTRANA DO 09/30/24 Prednisone (Prednisone) 20 Mg Tab, 20 MG PO DAILY for 5 Days, #5 MG Prov:RYLIE MEDINA CHECK CASHIER 07/09/24 Hydroxyzine Pamoate (Vistaril) 25 Mg Cap, 1 CAP PO BID, #10 CAP As needed for anxiety Prov:MARILYN BOCANEGRA CHECK CASHIER 12/14/23 Ondansetron Odt 4MG Tab (ZOFRAN PO) 4 Mg Tb, 1 TAB PO Q8HPRN PRN, #10 TAB as needed for nausea vomiting ODT TAB-DISSOLVE IN MOUTH, THEN SWALLOW Prov:MARILYN BOCANEGRA Q CHECK CASHIER 12/14/23 Ibuprofen Micronized (Ibuprofen) 600 Mg Tab, 1 TAB PO Q6HPRN PRN, #20 TAB as needed for pain Prov:MARILYN BOCANEGRA Q CHECK CASHIER 12/14/23 Promethazine-Dm (Promethazine Dm 6.25-15 mg/5Ml) 1 Todd Todd, 5 ML PO TID, #150 ML Prov:FELIBERTO PAGE 09/23/23 Ibuprofen (Ibuprofen) 800 Mg Tab, 1 TAB PO TID, #30 TAB Prov:FELIBERTO PAGE 09/23/23 Cyclobenzaprine Hcl (Cyclobenzaprine Hcl) 10 Mg Tab, 10 MG PO TIDPRN PRN for 10 Days, #30 TAB Prov:YARI PEREZ S DO 08/26/23 Acetaminophen (Acetaminophen) 500 Mg Tab, 500 MG PO QIDPRN for 10 Days, #40 TAB Prov:JOLEEN PEREZ S DO 08/26/23 Ibuprofen Micronized (Ibuprofen) 600 Mg Tab, 600 MG PO TIDPRN PRN, #20 TAB Prov:FLAVIA NIEVES PAC 08/02/23 Cyclobenzaprine Hcl (Cyclobenzaprine Hcl) 10 Mg Tab, 10 MG PO TID, #15 TAB Prov:FLAVIA NIEVES PAC 08/02/23 Promethazine-Dm (Promethazine Dm 6.25-15 mg/5Ml) 1 Todd Todd, 5 ML PO TID, #150 ML Prov:FELIBERTO PAGE 06/30/23 Azithromycin (Azithromycin) 500 Mg Tab, 1 TAB PO DAILY, #5 TAB Prov:FELIBERTO PAGE 06/30/23 Ondansetron Odt 4MG Tab (ZOFRAN PO) 4 Mg Tb, 4 MG PO Q6HP PRN for 6 Days, #24 TAB ODT TAB-DISSOLVE IN MOUTH, THEN SWALLOW Prov:MERON CEVALLOS MD 02/16/23 Pantoprazole Sodium Sesquihydr (Protonix) 40 Mg Tab, 40 MG PO DAILY, #30 TAB Prov:MERON CEVALLOS MD 02/16/23 Reported Medications Azithromycin (Azithromycin) 250 Mg Tab, 1 07/09/24 Lamotrigine (Lamotrigine) 25 Mg Tab 07/09/24 Gabapentin (Gabapentin) 100 Mg Cap, 1 CAP PO BID 07/09/24 Quetiapine Fumerate (QUETIAPINE FUMARATE) 25 Mg Tab, 2 TAB PO 07/09/24 Lorazepam (Ativan) 0.5 Mg Tab, 0.5 MG PO BID, TAB 07/09/24 Information Source: Patient, Emergency Med Personnel Mode of Arrival: EMS Severity: Moderate Timing: Days Duration: Since onset Prehospital treatment: 12 Lead EKG, Sales Research Analyst Review of Systems: REVIEW OF SYSTEMS: No fever, no chills, or fatigue HEENT: No sore throat, no earache, no congestion, no neck pain. Cardiac: Chest pain. No palpitations. Lungs: Shortness of breath, congestion, no cough. GI: No nausea, no vomiting, no diarrhea, no constipation, no abdominal pain : No dysuria, frequency, or urgency. No hematuria. Musculoskeletal: No joint pain , no joint swelling, no extremity edema. Skin: No rash, no itching. Neuro: No headache, no dizziness, no weakness Vital Signs Vital Signs Date Time Temp Pulse Resp B/P (MAP) Pulse Ox O2 Delivery O2 Flow Rate FiO2 11/25/24 02:20 98.0 70 18 128/82 (97) 96 98.0 11/25/24 02:20 Room Air* 0 21 Physical Exam General: Awake, alert and oriented. No acute distress. Skin: Skin in warm, dry and intact. Appropriate color for ethnicity. HEENT: The head is normocephalic and atraumatic. Conjunctivae are clear without exudates or hemorrhage. Sclera is non-icteric. EOM are intact. No signs of nystagmus. Eyelids are normal in appearance without swelling or lesions. Oral mucosa is pink and moist Neck: The neck is supple with normal range of motion. No JVD. Cardiac: Heart rate and rhythm are normal. No murmurs, gallops, or rubs are auscultated. Respiratory: No signs of respiratory distress. Lung sounds are clear in all lobes bilaterally without rales, rhonchi, or wheezes. Abdominal: Abdomen is soft, non-tender without distention, guarding or rigidity. Bowel sounds are present and normoactive in all four quadrants. Extremities: Upper and lower extremities are atraumatic in appearance without deformity or edema. Neurological: The patient is awake, alert and oriented to person, place, and time with normal speech. Speech is clear. There is no facial asymmetry. Psychiatric: Appropriate mood and affect. Good judgement and insight. 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 Was a procedure done?: No Differential Dx Considerations may include: Differential diagnoses considered includebut arenot limited to acute Br onchitis, Asthma, COPD, Pneumothorax, PE, CHF, Pulmonary HTN, Anemia, CO Poisoning, Methemoglobinemia, Hyperventilation, Metabolic Acidosis, Pulmonary Edema, Pneumonia, ACS, Pericardial Tamponade, Anxiety, other X-Ray, Labs, Meds, VS Vital Signs Date Time Temp Pulse Resp B/P (MAP) Pulse Ox O2 Delivery O2 Flow Rate FiO2 11/25/24 02:20 98.0 70 18 128/82 (97) 96 98.0 11/25/24 02:20 80 18 98 Room Air* 0 21 11/24/24 22:44 18 97 Room Air* 0 21 11/24/24 22:21 97.6 96 30 151/89 (109) 97 97.6 11/24/24 22:21 30 97 Room Air* 0 21 Lab Test 11/24/24 23:55 11/24/24 23:40 11/24/24 22:46 Range/Units Urine Test Negative Negative Troponin I High Sensitivity < 3 L < 3 L </=34 ng/L White Blood Count 5.2 4.4-10.8 10^3/uL Red Blood Count 4.84 4.0-5.20 10^6/uL Hemoglobin 15.1 12.2-16.2 g/dL Hematocrit 43.5 36.0-46.0 % Mean Corpuscular Volume 89.8 80.0-100.0 fL Mean Corpuscular Hemoglobin 31.2 28.0-32.0 pg Mean Corpuscular Hemoglobin Concent 34.7 32.0-36.0 g/dL Red Cell Distribution Width 12.9 11.8-14.3 % Platelet Count 213 140-450 10^3/uL Mean Platelet Volume 8.5 6.9-10.8 fL Neutrophils (%) (Auto) 52.1 37.0-80.0 % Lymphocytes (%) (Auto) 29.9 10.0-50.0 % Monocytes (%) (Auto) 5.9 0.0-12.0 % Eosinophils (%) (Auto) 11.3 H 0.0-7.0 % Basophils (%) (Auto) 0.8 0.0-2.0 % Neutrophils # (Auto) 2.7 1.6-8.6 10 ^3/uL Lymphocytes # (Auto) 1.5 0.4-5.4 10 ^3/uL Monocytes # (Auto) 0.3 0-1.3 10 ^3/uL Eosinophils # (Auto) 0.6 0-0.8 10 ^3/uL Basophils # (Auto) 0 0-0.2 10 ^3/uL Nucleated Red Blood Cells 0.0 % Sodium Level 139 136-145 mmol/L Potassium Level 4.0 3.5-5.1 mmol/L Chloride Level 106 98-107 mmol/L Carbon Dioxide Level 25 20-31 mmol/L Anion Gap 8 5-15 Blood Urea Nitrogen 7 L 9-23 mg/dL Creatinine 1.08 H 0.550-1.02 mg/dL Glomerular Filtration Rate Calc 71 >90 mL/min BUN/Creatinine Ratio 6.5 L 10.0-20.0 Serum Glucose 231 H 74-106 mg/dL Calcium Level 9.4 8.7-10.4 mg/dL B-Type Natriuretic Peptide 3.39 0-100 pg/mL Current Medications Medications (Trade) Dose Ordered Sig/Meagan Route Start Time Stop Time Status Last Admin Ipratropium Devon (Atrovent Medneb) 0.5 mg ONCE ONCE NEB 11/24/24 22:45 11/24/24 22:46 DC 11/24/24 22:44 Albuterol (Ventolin Medneb) 2.5 mg ONCE ONCE NEB 11/24/24 22:45 11/24/24 22:46 DC 11/24/24 22:44 Prednisone 20 mg ONCE ONCE PO 11/25/24 01:00 11/25/24 01:07 DC 11/25/24 02:21 Time of 1ST Reevaluation: 22:50 Reevaluation 1ST: Improved Patient Education/Counseling: Need For Follow Up Family Education/Counseling: No Family Present Departure 1 Departure Time of Disposition: 00:59 Impression: Primary Impression: Acute asthma exacerbation Additional Impression: Shortness of breath Disposition: HOME / SELF CARE / HOMELESS Condition: Stable Additional Instructions: ED DISCHARGE INSTRUCTIONS Instructions: Please read all instructions provided in this packet carefully. Although you have been discharged from the Emergency Department, this does not mean that you have a "clean bill of health". []No definitive diagnosis for your symptoms has been made today. It is possible that you are in the process of dev eloping a serious illness. This is why you must return to the ED without fail if any new or worsening symptoms (especially if your symptoms include chest pain, trouble breathing, abdominal pain, fever, headache, confusion, trouble seeing, or trouble walking) It is also very important that you see a primary care doctor within the next 3-5 days to follow up. If you are unable to get an appointment, return to the ED for re-evaluation. SHORTNESS OF BREATH EDUCATION Shortness of breath has many causes. Sometimes conditions such as anxiety can lead to shortness of breath. Some people get mild shortness of breath when they exercise. Trouble breathing also can be a symptom of a serious problem, such as asthma, lung disease, emphysema, heart problems, and pneumonia. If your shortness of breath continues, you may need tests and treatment. Watch for any changes in your breathing and other symptoms. Follow-up care is a ureña part of your treatment and safety. Be sure to make and go to all appointments, and call your doctor if you are having problems. It's also a good idea to know your test results and keep a list of the medicines you take. How can you care for yourself at home? Do not smoke or allow others to smoke around you. If you need help quitting, talk to your doctor about stop-smoking programs and medicines. These can increase your chances of quitting for good. Get plenty of rest and sleep. Take your medicines exactly as prescribed. Call your doctor if you think you are having a problem with your medicine. Find healthy ways to deal with stress. Exercise daily. Get plenty of sleep. Eat regularly and well. When should you call for help? Call 911 anytime you think you may need emergency care. For example, call if: You have severe shortness of breath. You have symptoms of a heart attack. These may include: Chest pain or pressure, or a strange feeling in the chest. Sweating. Shortness of breath. Nausea or vomiting. Pain, pressure, or a strange feeling in the back, neck, jaw, or upper belly or in one or both shoulders or arms. Lightheadedness or sudden weakness. A fast or irregular heartbeat. After you call 911, the expeller operator may tell you to chew 1 adult-strength or 2 to 4 low-dose aspirin. Wait for an ambulance. Do not try to drive yourself. Call your doctor now or seek immediate medical care if: Your shortness of breath gets worse or you start to wheeze. Wheezing is a high- pitched sound when you breathe. You wake up at night out of breath or have to prop your head up on several pillows to breathe. You are short of breath after only light activity or while at rest. Watch closely for changes in your health, and be sure to contact your doctor if: You do not get better over the next 1 to 2 days. Credits for Shortness of Breath: Care Instructions Current as of: January 17, 2024 Author: [employer] e-Prescriptions Ipratropium-Albuterol (Ipratropium Devon/Albut) 1 Todd Todd 1 TODD IN Q4HPRN PRN for 5 Days, #30 UNITS Prov: KING PAIZ MD 11/25/24 Prednisone (Prednisone) 20 Mg Tab 20 MG PO DAILY for 4 Days, #4 MG Prov: KING PAIZ MD 11/25/24 Comments 29-year-old female who presents to the emergency department with shortness of breath. EKG negative for signs of ischemia. High sensitivity troponin negative. CXR shows no acute process. Patient reports symptoms improved with respiratory treatments EN route with EMS and in the emergency department. Patient reports that she has had similar symptoms in the past, she was seen here in the ED in September and had a negative D-dimer at that time. Presentation not suggestive of acute coronary syndrome, pulmonary embolism or aortic dissection. Patient improved at time of discharge. No hypoxia, respiratory distress or dyspnea at discharge. Patient able to ambulate without difficulty. Patient well-appearing, nontoxic. Advised prompt follow-up with PCP, return to the ED with any new, worsening or concerning symptoms. Extensive evaluation was performed in attempt to identify or rule out: (See differential diagnosis section) The following tests were ordered, and results were reviewed by me and discussed with patient: (See diagnostic results section) The following test were independently interpreted by me: N/A I reviewed and agreed with the following test results read by other providers: N/A I reviewed the following notes from the pt's past medical encounters: July 08, 2024, July 29, 2024, August 09, 2024, and September 30, 2024 encounters for acute respiratory distress, shortness of breath, acute asthma exacerbation, and acute asthma exacerbation, respectively. Additional information was gathered from interviewing the following independent historians: EMS personnel Discussion of management or test interpretation with external physician/other qualified health transitional care nurse: N/A Decision regarding hospitalization or escalation of hospital level of care: Risks and benefits of admission for further treatment of patient's condition was considered however due to patient's stable condition patient will be discharged to follow up closely or return to care for worsening of condition or inability to follow up. Critical Care Note Critical Care Time?: No Stability Stability form required: No Heart Score Heart Score: Heart Score Response (Comments) Value History N/A 0 EKG N/A 0 Age N/A 0 Risk Factors N/A 0 Troponin N/A 0 Total 0 I personally scribed for KING PAIZ MD ([email or web address]) on 11/24/24 at 22:43. Electronically submitted by Terence Figueroa ([email or web address]). KING PAIZ MD Nov 24, 2024 22:43
[2024-11-24] MEDS: ALBUTEROL SULF 2.5 MG/0.5ML(0.5%) NEB SOLN NEB ONE (22:44)
[2024-11-24] MEDS: IPRATROPIUM BROM 0.5 MG/2.5ML INH SOL NEB ONE (22:44)
[2024-11-24 23:15] LABS: Basophils # (auto) 0 10 ^3/uL (0-0.2); Basophils % (auto) 0.8 % (0.0-2.0); Chloride 106 mmol/L (98-107); Eosinophils # (auto) 0.6 10 ^3/uL (0-0.8); Eosinophils % (auto) 11.3 % (0.0-7.0); Hematocrit 43.5 % (36.0-46.0); Hemoglobin 15.1 g/dL (12.2-16.2); Lymphocytes # (auto) 1.5 10 ^3/uL (0.4-5.4); Lymphocytes % (auto) 29.9 % (10.0-50.0); Mean Corpuscular Hemoglobin 31.2 pg (28.0-32.0); Mean Corpuscular Hgb Conc. 34.7 g/dL (32.0-36.0); Mean Corpuscular Volume 89.8 fL (80.0-100.0); Monocytes # (auto) 0.3 10 ^3/uL (0-1.3); Monocytes % (auto) 5.9 % (0.0-12.0); Neutrophils # (auto) 2.7 10 ^3/uL (1.6-8.6); Neutrophils % (auto) 52.1 % (37.0-80.0); Platelet Count (auto) 213 10^3/uL (140-450); Red Blood Cells 4.84 10^6/uL (4.0-5.20); Red Cell Distribution Width 12.9 % (11.8-14.3); Sodium 139 mmol/L (136-145); White Blood Cell 5.2 10^3/uL (4.4-10.8)
[2024-11-24 23:16] LABS: Anion Gap 8 (5-15); Calcium 9.4 mg/dL (8.7-10.4); Carbon Dioxide 25 mmol/L (20-31)
[2024-11-24 23:21] LABS: BUN/Creatinine Ratio 6.5 (10.0-20.0)
[2024-11-24 23:31] LABS: Blood Urea Nitrogen 7 mg/dL (9-23); Glucose 231 mg/dL (74-106)
--- NOTE | 2024-11-25 00:45 | DVH ---
CHEST RADIOGRAPH Indication: Shortness of breath Technique: Single frontal view of the chest was obtained COMPARISON: XY CHEST PORTABLE on DOS: 09/30/24, XY CHEST PORTABLE on DOS: 08/09/24, XY CHEST XRAY 1 VIE W on DOS: 09/23/23, XY CHEST PORTABLE on DOS: 08/26/23, XY CHEST XRAY 1 VIEW on DOS: 06/30/23 FINDINGS: Lines and Tubes: None Lungs: Clear Pleura: No effusion. No pneumothorax. Cardiomediastinal contours: Unremarkable Bones: Unremarkable IMPRESSION: 1. No acute disease.
[2024-11-25] MEDS ORDERED: PRED20TA2 PO (01:02)
[2024-11-25] MEDS ORDERED: IPRA0.00 IN (01:02)
[2024-11-25 02:20] VITALS: BP 128/82; PULSE 80; RESP 18; TEMP 98; O2SAT 98
[2024-11-25] MEDS: predniSONE 20 MG TAB PO ONE (02:21)
== END 2024-11-25 02:26 | disposition home or self-care (01) ==
LOC: ER 22:12 → EDUNIT# 22:12 → EDBD 22:12 → ER 11-25 02:26
DX: J45.901 Unspecified asthma with (acute) exacerbation (principal); I12.9 Hypertensive chronic kidney disease with stage 1 through stage 4 chronic kidney disease, or unspecified chronic kidney disease; N18.2 Chronic kidney disease, stage 2 (mild); F17.200 Nicotine dependence, unspecified, uncomplicated; F32.A Depression, unspecified; Z90.49 Acquired absence of other specified parts of digestive tract; Z79.899 Other long term (current) drug therapy
CPT/HCPCS: 36415; 71045; 80048; 81025; 83880; 84484; 85025; 94640; 99284; J7512

== ENCOUNTER 2024-12-22 19:20 | Emergency (ER) | payer MEDICAID ==
[~2024-12-22] VITALS: Ht 152.4 cm; Wt 118.5 kg
[~2024-12-22 19:20] MED LIST changes: +IPRA0.00 IN
--- NOTE | 2024-12-22 19:52 | ED.PDOC ---
SOB-HPI HPI Comments This patient is a severely morbidly obese 29 y.o female who presents to the ED for a chief complaint of SOB. Patient reports being diagnosed with asthma and bronchitis x 2-3 months ago, states using inhaler for this episode of SOB but denies any relief. Patient was seen at urgent care yesterday, had a steroid injection and breathing treatment with some relief. Patient notes also getting a CXR done however never received results for that imaging study. Patient denies any chest pain, fever, chills, nausea, vomiting. Upon ED arrival, patient is saturating at 95% on room air. 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: No Pertinent UTILITY HELICOPTER REPAIRER History Family History Family History: Reviewed,noncontributory to illness, Family hx of HTN Social History Smoker: Secondhand Alcohol: Denies ETOH Use Drugs: Marijuana Lives In: Home Constitutional: denies: chills, diaphoresis, fatigue, fever, malaise, sweats, weakness, others EENTM: denies: blurred vision, double vision, ear bleeding, ear discharge, ear drainage, ear pain, ear ringing, eye pain, eye redness, hearing loss, mouth pain, mouth swelling, nasal discharge, nose bleeding, nose congestion, nose pain, photophobia, tearing, throat pain, throat swelling, voice changes, others Respiratory: reports: SOB at rest, shortness of breath, SOB with excertion; denies: cough, hemoptysis, orthopnea, stridor, wheezing, others Cardiovascular: reports: Dyspnea on exertion; denies: chest pain, dizzy spells, diaphoresis, edema, irregular heart beat, left arm pain, lightheadedness, palpitations, PND, syncope, others Gastrointestinal: denies: abdomen distended, abdominal pain, blood streaked bowels, constipated, diarrhea, dysphagia, difficulty swallowing, hematemesis, melena, nausea, poor appetite, poor fluid intake, rectal bleeding, rectal pain, vomiting, others Genitourinary: denies: abnormal vagina bleeding, burning, dyspareunia, dysuria, flank pain, frequency, hematuria, incontinence, pain, , vagina discharge, urgency, others Neurological: denies: dizziness, fainting, headache, left sided numbness, left sided weakness, numbness, paresthesia, pre-existing deficit, right sided numbness, right sided weakness, seizure, speech problems, tingling, tremors, weakness, others Musculoskeletal: denies: back pain, gout, joint pain, joint swelling, muscle pain, muscle stiffness, neck pain, others Integumetry: denies: bruises, change in color, change in hair/nails, dryness, laceration, lesions, lumps, rash, wounds, others Allergic/Immunocompromised: denies: Difficulty Healing, Frequent Infections, Hives, Itching, others Hematologic/Lymphatic: denies: anemia, blood clots, easy bleeding, easy bruising, swollen glands, others Endocrine: denies: excessive hunger, excessive sweating, excessive thirst, excessive urination, flushing, intolerance to cold, intolerance to heat, unexplained weight gain, unexplained weight loss, others Psychiatric: denies: anxiety, bipolar disorder, depression, hopeless, panic disorder, schizophrenia, sleepless, suicidal, others All Other Systems: Reviewed and Negative Physical Exam General Appearance: Moderate Distress ([id number] distress due to shortness a breath concerns), Obese HEENT: Normal ENT Inspection, Pharynx Normal, TMs Normal Neck: Full Range of Motion, Non-Tender, Normal, Normal Inspection Respiratory: Chest Non-Tender, No Accessory Muscle Use, No Respiratory Distress, Wheezing (Mild wheeze appreciated right middle lobe. No accessory muscle use) Cardiovascular: No Edema, No JVD, No Murmur, No Gallop, Normal Peripheral Pu lses, Regular Rate/Rhythm Breast Exam: Deferred Gastrointestinal: No Organomegaly, Non Tender, No Pulsatile Mass, Normal Bowel Sounds, Soft Genitalia: Deferred Pelvic: Deferred Rectal: Deferred Extremities: No calf tenderness, Normal capillary refill, Normal inspection, Normal range of motion, Non-tender, No pedal edema Neurologic: Alert, No Motor Deficits, Normal Affect, Normal Mood, No Sensory Deficits Cerebellar Function: Normal Reflexes: Normal Skin: Dry, Normal Color, Warm Lymphatic: No Adenopathy Was a procedure done? Was a procedure done?: No Differential Dx Differential Diagnosis: Asthma, Bronchitis, Pneumonia, URI X-Ray, Labs, Meds, VS Vital Signs Date Time Temp Pulse Resp B/P (MAP) Pulse Ox O2 Delivery O2 Flow Rate FiO2 12/22/24 20:05 20 95 Room Air* 0 21 12/22/24 19:40 98.7 114 16 142/89 (106) 95 98.7 Current Medications Medications (Trade) Dose Ordered Sig/Meagan Route Start Time Stop Time Status Last Admin Albuterol (Ventolin Medneb) 5 mg ONCE ONCE NEB 12/22/24 20:00 12/22/24 20:01 DC 12/22/24 20:05 Ipratropium Glennie (Atrovent Medneb) 0.5 mg ONCE ONCE NEB 12/22/24 20:00 12/22/24 20:01 DC 12/22/24 20:05 X-Ray, Labs, Meds, VS Comment All studies performed the ED were evaluated by me personally. Chest x-ray was unremarkable for any acute consolidation or intrapulmonary concerns. Patient appears to be having a has been exacerbation. Patient will be sent home with a prescription for an albuterol inhaler and has been advised to follow up with the primary care provider for discussions related to probable poorly controlled asthma. Time of 1ST Reevaluation: 21:03 Reevaluation 1ST: Improved Consultation: PCP, Other Patient Education/Counseling: Diagnosis, Treatment, Prognosis Family Education/Counseling: Diagnosis, Treatment, No Family Present SEPSIS Sepsis Screen Recent Procedure: No On Antibiotic Therapy: No Respiratory Rate >20: No Heart Rate >90: No Temp<36 C (96.8 F) or >38.3 C: No SBP <90 or MAP <65 mmHG: No New Acute Mental Status Change: No Is the patient on CPAP, BIPAP,: No Physician Orders Chest Portable (12/22/24 19:55) Vital Signs Date Time Temp Pulse Resp B/P (MAP) Pulse Ox O2 Delivery O2 Flow Rate FiO2 12/22/24 20:05 20 95 Room Air* 0 21 12/22/24 19:40 98.7 114 16 142/89 (106) 95 98.7 Medications Medications Dose Ordered Sig/Meagan Route Start Time Stop Time Status Last Admin Dose Admin Albuterol 5 mg ONCE ONCE NEB 12/22/24 20:00 12/22/24 20:01 DC 12/22/24 20:05 Ipratropium Glennie 0.5 mg ONCE ONCE NEB 12/22/24 20:00 12/22/24 20:01 DC 12/22/24 20:05 Departure 1 Departure Time of Disposition: 21:03 Impression: Primary Impression: Acute asthma exacerbation Disposition: HOME / SELF CARE / HOMELESS Condition: Stable Additional Instructions: Advise utilizing inhaler as needed for symptomatic relief in additionally, patient should follow up with the primary care provider for discussions related to proper medication management of what appears to be poorly controlled asthma. e-Prescriptions Albuterol Sulfate (Albuterol Sulfate Hfa) 108 Mcg/Act Aer 108 MCG IN Q4HP PRN, #1 AER 1 Refill Prov: EULALIO OSHEA PAC 12/22/24 Discharged With: Self, Friend Critical Care Note Critical Care Time?: No Stability Stability form required: No I personally scribed for EULALIO OSHEA PAC ([email or web address]) on 12/22/24 at 19:52. Electronically submitted by Dixie Simpson ([facility]). EULALIO OSHEA PAC Dec 22, 2024 19:52
[2024-12-22] MEDS: ALBUTEROL SULF 2.5 MG/0.5ML(0.5%) NEB SOLN NEB ONE (20:05)
[2024-12-22] MEDS: IPRATROPIUM BROM 0.5 MG/2.5ML INH SOL NEB ONE (20:05)
--- NOTE | 2024-12-22 20:34 | DVH ---
INDICATION: Shortness of breath TECHNIQUE: Frontal view of the chest. COMPARISON: XY CHEST XRAY 1 VIEW on DOS: 11/25/24, XY CHEST PORTABLE on DOS: 09/30/24, XY CHEST PORTABLE on DOS: 08/09/24, XY CHEST XRAY 1 VIEW on DOS: 09/23/23, XY CHEST PORTABLE on DOS: 08/26/23 FINDINGS: . The heart and mediastinal contours are grossly unremarkable. There is no evidence of pleural disea se. The lungs are clear. The bony structures of the chest are intact without fracture. IMPRESSION: 1. No evidence of acute disease.
[2024-12-22] MEDS ORDERED: ALBU108A5 IN (21:04)
[2024-12-22 22:00] VITALS: BP 132/89; PULSE 100; RESP 18; TEMP 98.7; O2SAT 95
== END 2024-12-22 22:05 | disposition home or self-care (01) ==
LOC: ER 19:20
DX: J45.901 Unspecified asthma with (acute) exacerbation (principal); F12.90 Cannabis use, unspecified, uncomplicated; F17.200 Nicotine dependence, unspecified, uncomplicated; F41.9 Anxiety disorder, unspecified; F32.A Depression, unspecified; Z90.49 Acquired absence of other specified parts of digestive tract; Z98.890 Other specified postprocedural states
CPT/HCPCS: 71045; 94640